=== PATIENT | female | born 1970 | race Caucasian/White ===

== ENCOUNTER 2024-12-01 01:24 | Emergency (ER) | payer OTHER, SELFPAY ==
[2024-12-01] VITALS (8 sets, daily range): BP systolic 112–124; BP diastolic 50–80; PULSE 89–98; TEMP 36.6–37.1; O2SAT 93–98; BMI 27.4
--- NOTE | 2024-12-01 01:40 | ECG_ITS ---
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
--- NOTE | 2024-12-01 01:40 | ED_ITS ---
HPI HPI - General Adult General Chief complaint: Psychiatric Symptoms Stated complaint: HEARING VOICES Time Seen by Provider: 12/01/24 01:27 Source: patient Mode of arrival: walk-in Limitations: no limitations History of Present Illness HPI narrative: The patient have a history of schizophrenia herself as well as in her family, she does not actively take any medication as she ran out of her medication that she does not know the name of it. Patient mentioned that last night she started having some auditory hallucination telling her to hurt herself. The patient tried self-medicating with cocaine. Related Data Home Medications ?Medication ?Instructions ?Recorded ?Confirmed metformin 500 mg tablet,extended 500 mg PO DAILY 12/01/24 12/01/24 release 24 hr phentermine 37.5 mg tablet 37.5 mg PO DAILY 12/01/24 12/01/24 rosuvastatin 10 mg tablet 10 mg PO DAILY 12/01/24 12/01/24 Allergies Allergy/AdvReac Type Severity Reaction Status Date / Time No Known Drug Allergies Allergy Verified 12/01/24 01:30 Opioid HPI Opioid Management Most Recent Opioid Data: No Data to Display Exam Narrative Exam Narrative: Nurses notes and vital signs reviewed and patient is not hypoxic. General: Well-appearing and in no apparent distress. Skin: Warm, dry, no pallor noted. No rash. Head: Normocephalic, atraumatic. Cardiovascular: Regular Rate and Rhythm without murmur, gallop or rub. Respiratory: No accessory muscle use or respiratory distress. Back: No midline thoracic or lumbar vertebral tenderness. No CVA tenderness Musculoskeletal: normal ROM, no calf or popliteal tenderness, no lower extremity edema/swelling GI: Abdomen is soft, non-distended. Normal bowel sounds. No masses appreciated. No tenderness to palpation. No rebound, guarding, or rigidity noted. Neurological: A&O x4. No cranial nerve dysfunction observed. Constitutional Vital Signs, click to edit/add: Last Vital Signs Temp 98 F 12/01/24 01:30 Pulse 98 H 12/01/24 01:30 Resp 16 12/01/24 01:30 BP 124/80 12/01/24 01:30 Pulse Ox 95 12/01/24 01:30 O2 Del Method Room Air 12/01/24 01:30 Course Vital Signs Vital signs: Vital Signs Temperature 98 F 12/01/24 01:30 Pulse Rate 98 H 12/01/24 01:30 Respiratory Rate 16 12/01/24 01:30 Blood Pressure 124/80 12/01/24 01:30 Pulse Oximetry 95 12/01/24 01:30 Oxygen Delivery Method Room Air 12/01/24 01:30 Temperature 98 F 12/01/24 01:30 Pulse Rate 98 H 12/01/24 01:30 Respiratory Rate 16 12/01/24 01:30 Blood Pressure 124/80 12/01/24 01:30 Pulse Oximetry 95 12/01/24 01:30 Oxygen Delivery Method Room Air 12/01/24 01:30 Medical Decision Making MDM Narrative Medical decision making narrative: The patient EKG showing sinus rhythm with a heart rate of [address] elevation or depression The patient CBC and chemistry showed no acute pathology except for mild hypokalemia of 3.3 Ethanol level is negative and the patient talk screen and urinalysis are pending Lab Data Labs: Lab Results 12/01/24 Range/Units 02:00 WBC 11.2 H (4.0-11.0) 10^3/uL RBC 4.23 (4.20-5.40) 10^6/uL Hgb 12.3 (12.0-16.0) g/dL Hct 36.7 (36.0-48.0) % MCV 86.8 (81.0-99.0) fL MCH 29.1 (26.7-34.0) pg MCHC 33.5 (29.9-35.2) g/dL RDW 12.4 (11.0-15.0) % Plt Count 386 (150-450) 10^3/uL MPV 9.9 (9.5-13.5) fL Neut % (Auto) 67.8 (43.0-75.0) % Lymph % (Auto) 18.6 L (20.5-60.0) % [place] % (Auto) 8.2 (1.7-12.0) % Eos % (Auto) 4.3 (0.9-7.0) % Baso % (Auto) 1.0 (0.2-2.0) % Neut # (Auto) 7.6 H (1.4-6.5) 10^3/uL Lymph # (Auto) 2.1 (1.2-3.8) 10^3/uL [place] # (Auto) 0.9 H (0.3-0.8) 10^3/uL Eos # (Auto) 0.5 (0.0-0.7) 10^3/uL Baso # (Auto) 0.1 (0.0-0.1) 10^3/uL Abs Immat Gran (auto) 0.01 (0.00-0.03) 10^3/uL Imm/Tot Granulo (auto) 0.1 (0.0-0.5) % Sodium 137 (136-145) mmol/L Potassium 3.3 L (3.5-5.1) mmol/L Chloride 101 (98-107) mmol/L Carbon Dioxide 26.8 (21.0-32.0) mmol/L Anion Gap 12.5 BUN 15.0 (7.0-18.0) mg/dL Creatinine 0.93 (0.55-1.02) mg/dL Est GFR ( Amer) >60 (>=60 mL/min/1.73m^2) Est GFR (Non-Af Amer) >60 (>=60 mL/min/1.73m^2) BUN/Creatinine Ratio 16.1 Glucose 127 H (74-106) mg/dL Calcium 9.1 (8.5-10.1) mg/dL Total Bilirubin 0.6 (0.2-1.0) mg/dL AST 16 (15-37) U/L ALT 17 (14-59) U/L Alkaline Phosphatase 76 (46-116) U/L Total Protein 7.2 (6.4-8.2) g/dL Albumin 3.6 (3.4-5.0) g/dL Globulin 3.6 g/dL Albumin/Globulin Ratio 1.0 Salicylates <2.8 (<=19.9) mg/dL Acetaminophen <2.0 L (10.0-30.0) ug/mL Ethanol Quant <3 mg/dL Discharge Plan Discharge Patient Disposition: Still a Patient
[2024-12-01 02:11] LABS: Basophils Absolute Auto 0.1 10^3/uL (0.0-0.1); Eosinophils Absolute Auto 0.5 10^3/uL (0.0-0.7); Eosinophils Percent Auto 4.3 % (0.9-7.0); Hematocrit 36.7 % (36.0-48.0); Hemoglobin 12.3 g/dL (12.0-16.0); Immature Granulocytes Abs Auto 0.01 10^3/uL (0.00-0.03); Immature Granulocytes Pct Auto 0.1 % (0.0-0.5); Lymphocytes Absolute Auto 2.1 10^3/uL (1.2-3.8); Lymphocytes Percent Auto 18.6 % (20.5-60.0); Mean Corpuscular HGB Conc 33.5 g/dL (29.9-35.2); Mean Corpuscular Hemoglobin 29.1 pg (26.7-34.0); Mean Corpuscular Volume 86.8 fL (81.0-99.0); Mean Platelet Volume 9.9 fL (9.5-13.5); Monocytes Absolute Auto 0.9 10^3/uL (0.3-0.8); Monocytes Percent Auto 8.2 % (1.7-12.0); Neutrophils Absolute Auto 7.6 10^3/uL (1.4-6.5); Neutrophils Percent Auto 67.8 % (43.0-75.0); Platelet Count 386 10^3/uL (150-450); Red Blood Count 4.23 10^6/uL (4.20-5.40); Red Cell Distribution Width 12.4 % (11.0-15.0); White Blood Count 11.2 10^3/uL (4.0-11.0)
[2024-12-01 02:22] LABS: Alanine Aminotransferase 17 U/L (14-59); Albumin Level 3.6 g/dL (3.4-5.0); Alkaline Phosphatase 76 U/L (46-116); Anion Gap 12.5; Aspartate Amino Transferase 16 U/L (15-37); BUN Creatinine Ratio 16.1; Bilirubin Total 0.6 mg/dL (0.2-1.0); Calcium 9.1 mg/dL (8.5-10.1); Carbon Dioxide 26.8 mmol/L (21.0-32.0); Chloride 101 mmol/L (98-107); Estimated GFR (African America >60 (>=60 mL/min/1.73m^2); Estimated GFR (Non-African Ame >60 (>=60 mL/min/1.73m^2); Globulin 3.6 g/dL; Glucose 127 mg/dL (74-106); Potassium 3.3 mmol/L (3.5-5.1); Salicylate <2.8 mg/dL (<=19.9); Sodium 137 mmol/L (136-145); Total Protein 7.2 g/dL (6.4-8.2)
[2024-12-01 02:25] LABS: Ethanol <3 mg/dL
[2024-12-01 02:26] LABS: Acetaminophen <2.0 ug/mL (10.0-30.0)
[2024-12-01 08:06] LABS: Bilirubin Urine SMALL (NEGATIVE); Blood Urine NEGATIVE (NEGATIVE); Clarity Urine CLEAR (CLEAR); Color Urine YELLOW (YELLOW); Glucose Urine UA NEGATIVE (NEGATIVE); Ketones Urine 40 mg/dL (NEGATIVE); Leukocyte Esterase Urine TRACE (NEGATIVE); Nitrite Urine NEGATIVE (NEGATIVE); Protein Urine 30 mg/dL (NEG/TRACE); Specific Gravity Urine >=1.030 (1.005-1.025)
[2024-12-01 08:08] LABS: Urine Microscopic Indicated YES
[2024-12-01 08:15] LABS: Amphetamine Screen Urine POSITIVE (NEGATIVE); Barbiturates Screen Urine NEGATIVE (NEGATIVE); Benzodiazepines Screen Urine NEGATIVE (NEGATIVE); Buprenorphine Screen Urine NEGATIVE (NEGATIVE); Cannabinoid Screen Urine NEGATIVE (NEGATIVE); Cocaine Screen Urine POSITIVE (NEGATIVE); Methadone Screen Urine NEGATIVE (NEGATIVE); Methamphetamines Screen Urine NEGATIVE (NEGATIVE); Opiate Screen Urine NEGATIVE (NEGATIVE); Oxycodone Screen Urine NEGATIVE (NEGATIVE); Phencyclidine Screen Urine NEGATIVE (NEGATIVE); Tricyclic Antidepressant Urine NEGATIVE (NEGATIVE)
[2024-12-01 08:23] LABS: Bacteria Urine TRACE #/HPF (NONE SEEN); Cast Seen? SEEN #/LPF (NONE SEEN); Crystals Seen? None Seen #/HPF (None Seen); Hyaline Casts Urine RARE; Mucus Urine SMALL (NONE SEEN)
[2024-12-01 08:24] LABS: Squamous Epithelial Cell Urine MODERATE #/LPF (NONE/RARE); Urine Culture Indicated NO
== END 2024-12-01 13:59 ==
PROVIDERS: Emergency Provider Emergency Medicine
DX: F25.9 Schizoaffective disorder, unspecified (principal)
CPT/HCPCS: 36415; 80053; 80179; 80307; 80320; 80329; 81001; 85025; 93005; 99285

== ENCOUNTER 2025-02-17 00:18 | Emergency (ER) | payer OTHER, SELFPAY ==
--- OUTSIDE RECORDS SUMMARY | 2025-02-17 00:24 | XMS_ITS | CCD ---
Author Organization [facility] Care Team Providers Care Boat Hoist Operator Name Role Phone ANNA DOAN Admitting Unavailable OLIMPIA, ANNA Attending Unavailable OLIMPIA, ANNA Consulting Unavailable OLIMPIA, ANNA Admitting Unavailable OLIMPIA, ANNA Attending Unavailable OLIMPIA, ANNA Admitting Unavailable OLIMPIA, ANNA Attending Unavailable OLIMPIA, ANNA Consulting Unavailable Emma Cobb Unavailable Anna Doan Unavailable Cory Sage Unavailable Roxana Herrera Unavailable FRANCISCO Doan Primary Care Provider U FRANCISCO Hollis Attending Provider UnaMD Cory Guadalupe Attending Provider [phone] Anna Fitch Primary Care Provider U Boogie Venegas MD Attending Provider NO FAMILY, PHYSICIAN Primary Care Provider Boogie Ferreira MD Admit Provider Boogie Camilo Admitting Unavailab le ANTOINE FAMILY, PHYSICIAN Primary Care Unavailable Daniel Enciso Attending Unavailable Boogie Camilo Admitting Unavailab Boogie Mcguire Attending Unavailab le Anna Doan Primary Care Unavailable Medications Current Medications Medication Drug Class(es) Dates Sig (Normalized) Sig (Original) amoxicillin 875 mg oral tablet (2 sources) Penicillin-class Antibacterial Start: 10-27-2021 take 1 tablet by mouth every twelve hours Amoxicillin 875 MG 1 tablet Orally every 12 hrs for 7 days Oct, Active ARIPiprazole 2 mg oral tablet (1 source) Atypical Antipsychotic Start: 12-04-2024 take 1 tablet by mouth once daily at bedtime Aripiprazole 2 mg Tablet Active 2 MG PO Daily at bedtime December 04, 2024 12:00am cyclobenzaprine hydrochloride 10 mg oral tablet (1 source) Muscle Relaxant Start: 12-21-2021 take 1 tablet by mouth every eight hours Cyclobenzaprine HCl 10 MG 1 tablet as needed Orally Three times a day for 10 days Dec, Active dextromethorphan hydrobromide 1.5 mg/ml / pyrilamine maleate 1.5 mg/ml oral solution (2 sources) Uncompetitive O-cnbxuu-Z-aspartat e Receptor Antagonist, Sigma-1 Agonist Start: 10-27-2021 Hartman DM 7.5-7.5 MG/5ML 10 ml Orally every 6-8 hours as needed for 8 days Oct, Active DULoxetine 60 mg delayed release oral capsule (5 sources) Serotonin and Norepinephrine Reuptake Inhibitor Start: 09-21-2021 take 1 capsule by mouth every twenty-four hours DULoxetine HCl 60 MG 1 capsule Orally Once a day for 30 day(s) Sep, Active Start: 09-21-2021 take 1 capsule by [facility] every twenty-four hours DULoxetine HCl 30 MG 1 capsule Orally Once a day for 30 day(s) Sep, Active escitalopram 5 mg oral tablet (1 source) Serotonin Reuptake Inhibitor Start: 12-04-2024 take 1 tablet by mouth once daily Escitalopram Oxalate 5 mg Tablet Active 5 MG PO Daily December 04, 2024 12:00am L-Tyrosine (6 sources) L-Tyrosine Activ e Medical Marijuana / Cannabinoid Product as documented (13 sources) Medical Marijuan a / Cannabinoid Product as documented as documented as documented as documented PRN Active Medical Marijuan a / Cannabinoid Product as documented as documented as documented as documented Active 24 hr metFORMIN hydrochloride 500 mg extended release oral tablet (19 sources) Biguanide Start: 01-05-2024 End: 09-04-2024 take 1 tablet by mouth once daily Metformin 500 mg tablet extended release 24 hr Active 500 MG PO Daily September 04, 2024 10:35am Start: 11-26-2022 take 2 tablets by [facility] every twenty-four hours metFORMIN HCl ER 500 MG 2 tablets Orally Once a day for 30 days Nov, Active Start: 11-26-2022 take 1 tablet by sherly every other week at dinner, then take 2 tablets by mouth once daily metFORMIN HCl ER 500 MG 1 tablet with breakfast or evening meal and in 2 weeks if no side effects take 2 tablets Orally Once a day for 30 day(s) Nov, Active methylPREDNISolone 4 mg oral tablet (2 sources) Corticosteroid Start: 08-30-2022 methylPREDNISo lone 4 MG as directed Orally Once a day for 6 days Aug, Active Start: 12-21-2021 methylPREDNISo lone 4 MG as directed Orally Once a day for 6 days Dec, Active 24 hr nicotine 0.875 mg/hr transdermal system (1 source) Cholinergic Nicotinic Agonist Start: 12-04-2024 apply 1 dose transdermal route every twenty-four hours Nicotine 21 mg/24 hr Patch 24 Hour Active 21 MG TRANSDERML Daily December 04, 2024 12:00am omeprazole 20 mg delayed release oral tablet (17 sources) Proton Pump Inhibitor Start: 12-01-2024 take 1 tablet by mouth once daily Omeprazole 20 mg tablet,delayed release (DR/EC) Active 20 MG PO Daily December 01, 2024 12:00am Start: 01-05-2024 End: 01-05-2024 take 1 capsule by mouth once daily Omeprazole 20 mg capsule,delayed release(DR/EC) Discontinued 20 MG PO Daily January 04, 2024 11:00pm January 05, 2024 8:41am take 1 capsule by [facility] once daily as needed Omeprazole 20 MG 1 capsule 30 minutes before morning meal otc Orally Once a day prn Active Omeprazole Activ e ondansetron 4 mg oral tablet (2 sources) Serotonin-3 Receptor Antagonist Start: 10-27-2021 take 1 tablet by mouth every eight hours as needed Zofran ODT 4 MG 1 tablet on the tongue and allow to dissolve Orally every 8 hrs as needed for 4 days Oct, Active oseltamivir 75 mg oral capsule (2 sources) Neuraminidase Inhibitor Start: 10-27-2021 take 1 capsule by mouth every twelve hours Tamiflu 75 MG 1 capsule Orally Twice a day for 5 day(s) Oct, Active 24 hr paliperidone 3 mg extended release oral tablet (1 source) Atypical Antipsychotic take 1 tablet by mouth every twenty-four hours Invega 3 MG 1 tablet in the morning Orally Once a day Active phentermine hydrochloride 37.5 mg oral tablet (15 sources) Sympathomimetic Amine Anorectic Start: 01-05-2024 End: 09-04-2024 take 1 tablet by mouth once daily Phentermine 37.5 mg tablet Active 37.5 MG PO Daily September 04, 2024 10:35am Start: 10-24-2023 take 1 tablet by sherly th every twenty-four hours Phentermine HCl 37.5 MG 1 tablet Orally Once a day for 30 days . BMI 33. She can stay on the medication long-term as she has a greater than 10% weight loss. Oct, Active Start: 09-12-2023 take 1 tablet by sherly th every twenty-four hours Phentermine HCl 37.5 MG 1 tablet Orally Once a day for 30 days . BMI 33. She can stay on the medication long-term as she has a greater than 10% weight loss. Sep, Active Start: 08-04-2023 take 1 tablet by shelry th every twenty-four hours Phentermine HCl 37.5 MG 1 tablet Orally Once a day for 30 days . BMI 34. She can stay on the medication long-term as she has a greater than 10% weight loss. Aug, Active Start: 06-14-2023 take 1 tablet by sherly th every twenty-four hours Phentermine HCl 37.5 MG 1 tablet Orally Once a day for 30 days . BMI 36. Refill 05/24/2023. Jun, Active Start: 05-03-2023 take 1 tablet by mouth once da so Phentermine HCl 37.5 MG 1 tablet Orally Once a day for 30 days . BMI 36. Refill 05/24/2023. May, Active Start: 03-18-2023 take 1 tablet by mouth once da so Phentermine HCl 37.5 MG 1 tablet Orally Once a day for 30 days Mar, Active prazosin 2 mg oral capsule (6 sources) alpha-Adrenergic Oleg take 1 capsule by mouth every twenty-four hours Minipress 2 MG 1 capsule at bedtime Orally Once a day Active QUEtiapine 25 mg oral tablet (2 sources) Atypical Antipsychotic take 1 tablet by mouth every twenty-four hours SEROquel 25 MG 1 tablet at bedtime Orally Once a day for 30 day(s) Active Qunol Ultra CoQ10 100-150 MG-UNIT (8 sources) take 1 capsule by mouth once daily Qunol Ultra CoQ10 100-150 MG-UNIT 1 capsule Orally daily OTC Active rosuvastatin calcium 10 mg oral tablet (19 sources) HMG-CoA Reductase Inhibitor Start: End: take 1 tablet by mouth once daily Rosuvastatin 10 mg tablet Active 10 MG PO Daily September 04, 2024 10:35am take 1 tablet by mouth once stephanie y Rosuvastatin Calcium 10 mg TAKE 1 TABLET BY MOUTH DAILY for 30 Active 0.25 mg, 0.5 mg dose 1.5 ml semaglutide 1.34 mg/ml pen injector (3 sources) Start: 11-26-2022 Ozempic (0.25 or 0.5 MG/DOSE) 2 MG/1.5ML 0.25 mg for one month and then increase to 0.5 mg dose Subcutaneous weekly for 30 days Nov, Active ubiquinol 100 mg oral capsule (5 sources) take 1 capsule by mouth once daily Qunol Ultra CoQ10 100-150 MG-UNIT 1 capsule Orally daily OTC Active Completed/Discontinued Medications Medication Drug Class(es) Dates Sig (Normalized) Sig (Original) acetaminophen 325 mg oral capsule (2 sources) Start: 01-05-2024 End: 12-01-2024 take 1 capsule by mouth every six hours as needed Acetaminophen (Tylenol) 325 mg capsule Discontinued 325 MG PO Every 6 hours as needed January 04, 2024 11:00pm December 01, 2024 3:49pm ascorbic acid 1000 mg oral tablet (1 source) Vitamin C Start: 08-20-2024 End: 12-01-2024 take 1 g by mouth every six hours Ascorbic Acid (Vitamin C) 1,000 mg capsule Discontinued 1 GM PO Every 6 hours August 20, 2024 12:00am December 01, 2024 3:50pm Problems Active Problems Problem Classification Problem Date Documented Date Episodic/Chronic Anxiety disorders (20 sources) Generalized anxiety disorder; Translations: [Generalized anxiety disorder] Onset: 09-21-2021 Resolved: 12-21-2021 Chronic Disorders of lipid metabolism (20 sources) Hypercholesterolemia; Translations: [Pure hypercholesterolemia, unspecified] Chronic Esophageal disorders (20 sources) Gastroesophageal reflux disease; Translations: [Gastro-esophageal reflux disease without esophagitis] Chronic Other aftercare (7 sources) Other lead game designer (current) drug therapy Episodic Other connective tissue disease (1 source) Plantar fascial fibromatosis Episodic Other nutritional; endocrine; and metabolic disorders (20 sources) Body mass index 30+ - obesity; Translations: [Body mass index (BMI) 35.0-35.9, adult] Chronic Other nutritional; endocrine; and metabolic disorders (20 sources) Obesity; Translations: [Other obesity due to excess calories] Chronic Other nutritional; endocrine; and metabolic disorders (1 source) Other obesity due to excess calories Chronic Other nutritional; endocrine; and metabolic disorders (2 sources) Body mass index (BMI) 35.0-35.9, adult Chronic Other nutritional; endocrine; and metabolic disorders (13 sources) Obesity, unspecified; Translations: [Obesity, unspecified] Chronic Other nutritional; endocrine; and metabolic disorders (1 source) Body mass index (BMI) 33.0-33.9, adult Chronic Other nutritional; endocrine; and metabolic disorders (2 sources) Obese class I; Translations: [Obesity, unspecified] 01-05-2024 Chronic Other nutritional; endocrine; and metabolic disorders (1 source) Abnormal weight gain Episodic Other nutritional; endocrine; and metabolic disorders (1 source) Body mass index 25-29 - overweight; Translations: [Overweight] 06-21-2024 Episodic Other skin disorders (15 sources) Acanthosis nigricans; Translations: [Acanthosis nigricans] 01-05-2024 Episodic Other skin disorders (10 sources) Acanthosis nigricans; Translations: [Acquired acanthosis nigricans] Episodic Other upper respiratory infections (3 sources) Acute upper respiratory infection, unspecified; Translations: [Streptococcal sore throat] Onset: 06-26-2021 Resolved: 06-26-2021 Episodic Residual codes; unclassified (19 sources) Amnesia; Translations: [Other amnesia] Episodic Schizophrenia and other psychotic disorders (3 sources) Schizophrenia; Translations: [Schizophrenia, unspecified] Onset: 12-01-2024 12-02-2024 Chronic Spondylosis; intervertebral disc disorders; other back problems (16 sources) Acute back pain with sciatica; Translations: [Lumbago with sciatica, right side] Onset: 12-21-2021 Resolved: 12-21-2021 Episodic Suicide and intentional self-inflicted injury (3 sources) Suicidal thoughts; Translations: [Suicidal ideations] Onset: 12-01-2024 12-02-2024 Episodic Unclassified (3 sources) CONTACT W/AND (SUSP) EXPOS COVID-19; Translations: [CONTACT W/AND (SUSP) EXPOS COVID-19] Onset: 07-09-2021 Past or Other Problems Problem Classification Problem Date Documented Date Episodic/Chronic Immunizations and screening for infectious disease (7 sources) Contact with and (suspected) exposure to other viral communicable diseases; Translations: [Encounter for screening for other viral diseases] Onset: 06-10-2021 Resolved: 10-27-2021 Episodic Influenza (1 source) Influenza due to other identified influenza virus with other respiratory manifestations Onset: 10-27-2021 Resolved: 10-27-2021 Episodic Malaise and fatigue (1 source) Other fatigue; Translations: [Fatigue, unspecified type R53.83] Onset: 07-14-2021 Resolved: 07-14-2021 Episodic Otitis media and related conditions (1 source) Otitis media, unspecified, right ear Onset: 10-27-2021 Resolved: 10-27-2021 Episodic Residual codes; unclassified (1 source) Other amnesia Onset: 09-21-2021 Resolved: 09-21-2021 Episodic Unclassified (1 source) CONTACT W/AND (SUSP) EXPOS COVID-19; Translations: [CONTACT W/AND (SUSP) EXPOS COVID-19] Onset: 06-29-2021 Viral infection (1 source) COVID-19 Onset: 10-27-2021 Resolved: 10-27-2021 Results Test Name Value Interpretation Reference Range Facility Cholesterol [Mass/volume] in Serum or PlasmaOrdered By: Boogie Camilo on 12-02-2024 Cholesterol [Mass/Vol] Cholesterol [Mass/volume] in Serum or Plasma Low 140-200 [facility] Comment on above: Chol less than 200 m g/dl low riskChol 201-239 mg/dl borderline riskChol 240 mg/dl and greater high risk Cholesterol in HDL [Mass/vol ume] in Serum or PlasmaOrdered By: Boogie Camilo on 12-02-2024 Cholesterol in HDL [Mass/Vol] Serum or plasma high density lipoprotein (HDL) cholesterol measurement [facility] Comment on above: HDL CHOL ATP-III CLA SSIFICATION Cardiovascular RiskHDL > or equal to 60 mg/dL LOWHDL < 40 mg/dL HIGH Cholesterol in LDL Calc [Mas s/Vol]Ordered By: Boogie Camilo on 12-02-2024 Cholesterol in LDL [Mass/Vol] Cholesterol in LDL [Mass/volume] in Serum or Plasma by calculation 0-100 [facility] Comment on above: LDL ATP III CLASSIFI CATIONLDL less than 100 mg/dL OptimalLDL 100-129 mg/dL Near or above optimalLDL 130-159 mg/dL Borderline highLDL 160-189 mg/dL HighLDL greater than 189 mg/dL Very high Cholesterol in VLDL Calc [Ma ss/Vol]Ordered By: Boogie Camilo on 12-02-2024 Cholesterol in VLDL [Mass/Vol] Cholesterol in VLDL [Mass/volume] in Serum or Plasma by calculation [facility] Lipid Panelon 12-02-2024 Cholesterol [Mass/Vol] 136 mg/dL Low 140-200 [facility] Comment on above: Result Comment: Chol less than 200 mg/dl low risk Chol 201-239 mg/dl borderline risk Chol 240 mg/dl and greater high risk Performed By: #### V [id number], LIPID, TSH3 wRFLX #### [facility] [address] [place] [address] [place] Cholesterol in HDL [Mass/Vol] 48 mg/dL Normal [facility] Comment on above: Result Comment: HDL CHOL ATP-III CLASSIFICATION Cardiovascular Risk HDL > or equal to 60 mg/dL LOW HDL < 40 mg/dL HIGH Performed By: #### V [id number], LIPID, TSH3 wRFLX #### [facility] [address] Cholesterol.total/Anupama sterol in HDL [Mass ratio] 2.8 {ratio} Normal <5.0 [facility] Comment on above: Performed By: #### V [id number], LIPID, TSH3 wRFLX #### [facility] [address] LDL Cholesterol,Calculated 63 mg/dL Normal 0-100 [facility] Comment on above: Result Comment: LDL ATP III CLASSIFICATION LDL less than 100 mg/dL Optimal LDL 100-129 mg/dL Near or above optimal LDL 130-159 mg/dL Borderline high LDL 160-189 mg/dL High LDL greater than 189 mg/dL Very high Performed By: #### V [id number], LIPID, TSH3 wRFLX #### [facility] [address] Triglyceride w/Reflex 127 mg/dL Normal 0-149 [facility] Comment on above: Result Comment: TRIG ATP III CLASSIFICATION TRIG less than 150 mg/dL Normal TRIG 150-199 mg/dL Borderline high TRIG 200-500 mg/dL High TRIG greater than 500 mg/dL Very high Standard traceable to the Center for Disease Conrtrol and Prevention (CDC) test method. Performed By: #### V [id number], LIPID, TSH3 wRFLX #### [facility] [address] VLDL CHOLESTEROL 25 mg/dL Normal [facility] Comment on above: Performed By: #### V [id number], LIPID, TSH3 wRFLX #### [facility] [address] Serum or plasma total choles terol/high density lipoprotein (HDL) cholesterol mass ratOrdered By: Boogie Camilo on 12-02-2024 Cholesterol.total/Anupama sterol in HDL [Mass ratio] Serum or plasma total cholesterol/high density lipoprotein (HDL) cholesterol mass rat <5.0 [facility] Thyroid Stim Hormone w/Rflxo n 12-02-2024 Thyroid Stim Hormone w/Rflx 1.41 u[iU]/mL Normal 0.45-5.33 [facility] Comment on above: Performed By: #### V [id number], LIPID, TSH3 wRFLX #### [facility] [address] Thyrotropin [Units/volume] i n Serum or PlasmaOrdered By: Boogie Camilo on 12-02-2024 TSH Qn Thyrotropin [Units/volume] in Serum or Plasma 0.45-5.33 [facility] Triglyceride [Mass/volume] i n Serum or PlasmaOrdered By: Boogie Camilo on 12-02-2024 Triglyceride [Mass/Vol] Triglyceride [Mass/volume] in Serum or Plasma 0-149 [facility] Comment on above: TRIG ATP III CLASSIF ICATIONTRIG less than 150 mg/dL NormalTRIG 150-199 mg/dL Borderline highTRIG 200-500 mg/dL High TRIG greater than 500 mg/dL Very highStandard traceable to the Center for Disease Conrtrol and Prevention (CDC) test method. Vitamin D 25 Hydroxy Totalon 12-02-2024 Vitamin D 25 Hydroxy Total 32.4 ng/mL Normal 30-100 [facility] Comment on above: Result Comment: ASPEN MIN D STATUS 25(OH)VITAMIN D RANGE (ng/mL) Deficient <20 Insufficient 20 to <30 Sufficient 30 to 100 Reference: Charlene Shi, Bryce BROWNLEE, et al. Evaluation,treatment, and prevention of vitamin D deficiency; an Endocrine Society clinical practice guideline. JCEM. 2010; 96(7):1911-30. PERFORMED BY: [place] [address] PATHOLOGIST [employer]NER NILES LATIF M.D. Performed By: #### V [id number], LIPID, TSH3 wRFLX #### [address] Vitamin D+Metabolites [Mass/ volume] in Serum or PlasmaOrdered By: Boogie Camilo on 12-02-2024 Vitamin D+Metabolites [Mass/Vol] Vitamin D+Metabolites [Mass/volume] in Serum or Plasma 30-100 [facility] Comment on above: VITAMIN D STATUS 25( [place])VITAMIN D RANGE (ng/mL) Deficient <20 Insufficient 20 to <30Sufficient 30 to 100Reference: Charlene Shi, Bryce BROWNLEE, et al. Evaluation,treatment, and prevention of vitamin D deficiency; an Endocrine Society clinical practice guideline. JCEM. 2010; 96(7):1911-30. Alanine aminotransferase [En zymatic activity/volume] in Serum or PlasmaOrdered By: Cory Sage on 10-17-2023 ALT [Catalytic activity/Vol] 15 U/L 7-52 [facility] Albumin [Mass/volume] in Ser um or Plasma by Bromocresol green (BCG) dye binding methoOrdered By: Cory Sage on 10-17-2023 Albumin BCG dye [Mass/Vol] 4.3 g/dL 3.5-5.7 [facility] Alkaline phosphatase [Enzyma tic activity/volume] in Serum or PlasmaOrdered By: Cory Sage on 10-17-2023 ALP [Catalytic activity/Vol] 67 U/L 34-104 [facility] Aspartate aminotransferase [ Enzymatic activity/volume] in Serum or PlasmaOrdered By: Cory Sage on 10-17-2023 AST [Catalytic activity/Vol] 15 U/L 13-39 [facility] Bilirubin.total [Mass/volume ] in Serum or PlasmaOrdered By: Cory Sage on 10-17-2023 Bilirubin [Mass/Vol] 0.5 mg/dL 0.3-1.0 [facility] Calcium [Mass/volume] in Ser um or PlasmaOrdered By: Cory Sage on 10-17-2023 Calcium [Mass/Vol] 9.2 mg/dL 8.6-10.3 [facility] Carbon dioxide, total [Moles /volume] in Serum or PlasmaOrdered By: Cory Sage on 10-17-2023 CO2 [Moles/Vol] 31.3 mmol/L 21.0-31.0 [facility] Chloride [Moles/volume] in S taylor or PlasmaOrdered By: Cory Sage on 10-17-2023 Chloride [Moles/Vol] 108 mmol/L 98-107 [facility] Cholesterol [Mass/volume] in Serum or PlasmaOrdered By: Cory Sage on 10-17-2023 Cholesterol [Mass/Vol] 157 mg/dL 140-200 [facility] Comment on above: Chol less than 200 m g/dl low riskChol 201-239 mg/dl borderline riskChol 240 mg/dl and greater high risk Cholesterol in LDL Calc [Mas s/Vol]Ordered By: Cory Sage on 10-17-2023 Cholesterol in LDL [Mass/Vol] 93 mg/dL 0-100 [facility] Comment on above: LDL ATP III CLASSIFI CATIONLDL less than 100 mg/dL OptimalLDL 100-129 mg/dL Near or above optimalLDL 130-159 mg/dL Borderline highLDL 160-189 mg/dL HighLDL greater than 189 mg/dL Very high Cholesterol in VLDL Calc [Ma ss/Vol]Ordered By: Cory Sage on 10-17-2023 Cholesterol in VLDL [Mass/Vol] 20 mg/dL [facility] Creatinine [Mass/volume] in Serum or PlasmaOrdered By: Cory Sage on 10-17-2023 Creatinine [Mass/Vol] 0.81 mg/dL 0.60-1.20 [facility] Globulin Calc (S) [Mass/Vol] Ordered By: Cory Sage on 10-17-2023 Globulin (S) [Mass/Vol] 2.2 g/dL [facility] Glucose [Mass/volume] in Ser um or PlasmaOrdered By: Cory Sage on 10-17-2023 Glucose [Mass/Vol] 94 mg/dL 70-100 [facility] Comment on above: ADA recommended refe rence rangeRandom Glucose Reference Range is dependent on time and content of last meal. Glucose of more than 200 mg/dL in a nonstressed, ambulatory subject supports the diagnosis of Diabetes Mellitus. No Panel InformationOrdered By: Cory Sage on 10-17-2023 Estimated GFR (CKD-EPI) > 60.0 mL/Min [facility] Creatinine Clearance (Chem N/A [facility] Potassium [Moles/volume] in Serum or PlasmaOrdered By: Cory Sage on 10-17-2023 Potassium [Moles/Vol] 4.8 mmol/L 3.5-5.1 [facility] Protein [Mass/volume] in Ser um or PlasmaOrdered By: Cory Sage on 10-17-2023 Protein [Mass/Vol] 6.5 g/dL 6.4-8.9 [facility] Serum or plasma albumin/glob ulin mass ratioOrdered By: Cory Sage on 10-17-2023 Albumin/Globulin [Mass ratio] 2.0 {ratio} [facility] Serum or plasma anion gap de terminationOrdered By: Cory Sage on 10-17-2023 Anion gap [Moles/Vol] 8.5 mmol/L 6.0-15.0 [facility] Serum or plasma high density lipoprotein (HDL) cholesterol measurementOrdered By: Cory Sage on 10-17-2023 Cholesterol in HDL [Mass/Vol] 44 mg/dL 23-92 [facility] Comment on above: HDL CHOL ATP-III CLA SSIFICATION Cardiovascular RiskHDL > or equal to 60 mg/dL LOWHDL < 40 mg/dL HIGH Serum or plasma total choles terol/high density lipoprotein (HDL) cholesterol mass ratOrdered By: Cory Sage on 10-17-2023 Cholesterol.total/Anupama sterol in HDL [Mass ratio] 3.6 {ratio} <5.0 [facility] Sodium [Moles/volume] in Ser um or PlasmaOrdered By: Cory Sage on 10-17-2023 Sodium [Moles/Vol] 143 mmol/L 136-145 [facility] Triglyceride [Mass/volume] i n Serum or PlasmaOrdered By: Cory Sage on 10-17-2023 Triglyceride [Mass/Vol] 100 mg/dL 0-149 [facility] Comment on above: TRIG ATP III CLASSIF ICATIONTRIG less than 150 mg/dL NormalTRIG 150-199 mg/dL Borderline highTRIG 200-500 mg/dL High TRIG greater than 500 mg/dL Very highStandard traceable to the Center for Disease Conrtrol and Prevention (CDC) test method. Urea nitrogen [Mass/volume] in Serum or PlasmaOrdered By: Cory Sage on 10-17-2023 Urea nitrogen [Mass/Vol] 19 mg/dL 7- [facility] Vitamin B12 ser/plasOrdered By: Cory Sage on 10-17-2023 Cobalamin (Vitamin B12) [Mass/Vol] 455 pg/mL 180-914 [facility] Comprehensive Metabolic Pane dora 10-29-2022 Albumin [Mass/Vol] 4.187000 g/dL Normal 3.2-5.5 g/dL N [facility] [employer] Other Albumin/Globulin [Mass ratio] 1.5 {ratio} [facility] [employer] Other ALP [Catalytic activity/Vol] 69 U/L Normal 32-92 U/L [place] [employer] Other ALT [Catalytic activity/Vol] 19 U/L Normal 10-60 U/L [place] [employer] Other AST [Catalytic activity/Vol] 18 U/L Normal 10-42 U/L [place] [employer] Other Bilirubin [Mass/Vol] 0.8065905 mg/dL Normal 0.3- 1.2 mg/dL [place] [employer] Other Calcium [Mass/Vol] 9.9804343 mg/dL Normal 8.2-10 .2 mg/dL [place] [employer] Other Chloride [Moles/Vol] 105 mmol/L Normal 95-114 mmol/L [place] [employer] Other CO2 [Moles/Vol] 26.15014610 mmol/L Normal 22.0-3 0.0 mmol/L [place] [employer] Other Creatinine [Mass/Vol] 0.52654362 mg/dL Normal 0. 44-1.03 mg/dL [place] [employer] Other Glucose [Mass/Vol] 97 mg/dL Normal 70-100 mg/dL [place] [facility] Other Potassium [Moles/Vol] 4.33248475 mmol/L Normal 3 .5-5.1 mmol/L [place] [employer] Other Protein [Mass/Vol] 6.612563 g/dL Normal 6.1-7.9 g/dL [facility] [employer] Other Sodium [Moles/Vol] 139 mmol/L Normal 136-146 mmol/L [place] Other Urea nitrogen [Mass/Vol] 20 mg/dL Normal 9-23 mg/dL [employer] Other Comprehensive Metabolic Panel > 60 [employer] Other Comprehensive Metabolic Panel 2.6 g/dL [place] Other Insulinon 10-29-2022 Insulin 28.3 u[iU]/mL High 2.6-24.9 u[iU]/mL [facility] [employer] Other Lipid Panelon 10-29-2022 Cholesterol [Mass/Vol] 268 mg/dL High 140-2 00 mg/dL [place] [facility] Other Cholesterol in HDL [Mass/Vol] 52 mg/dL Normal 35-85 mg/dL [employer] Other Cholesterol in LDL Elph Qn 194 mg/dL High 0-100 mg/dL [place] [employer] Other Cholesterol.total/Anupama sterol in HDL [Mass ratio] 5.2 {ratio} <5.0 [place] [facility] Other Lipid Panel 110 mg/dL Normal 35-149 mg/dL [employer] Other Lipid Panel 22 mg/dL [employer] Other Thyroid Stimulating Hormoneo n 10-29-2022 TSH Qn 0.92851499199 m[IU]/L Normal 0.45-5 .33 u[iU]/mL [place] [employer] Other A1C HEMOGLOBINon 10-14-2022 HbA1c (Bld) [Mass fraction] 5.6 % [place] [facility] Other HbA1c (Bld) [Mass fraction]o n 10-14-2022 A1C HEMOGLOBIN [facility] [employer] Other COVID Quick Testingon 2021 Result Positive [place] Other Quick Fluon 10-27-2021 FLUAV Ab CF (S) [Titer] Negative N [facility] [employer] Other FLUBV Ab CF (S) [Titer] Positive N [facility] [employer] Other Covid-19 PCR (CVDTBH)on 06-04 SARS-CoV-2 (COVID-19) RNA JAVI+probe Ql (Unsp spec) Not detected Normal NOT DETECTED [facility] Comment on above: Result Comment: This test is not yet approved or cleared by the [place] FDA. When there are no FDA-approved or cleared tests available, and other criteria are met, FDA can make tests available under an emergency access mechanism called an Emergency Use Authorization (EUA). The EUA for this test is supported by the [place] of Health and Human Service's (HHS's) declaration that circumstances exist to justify the emergency use of in vitro diagnostics for the detection and/or diagnosis of the virus that causes COVID-19. This EUA will remain in effect (meaning this test can be used) for the duration of the COVID-19 declaration justifying emergency of IVDs, unless it is terminated or revoked by FDA (after which the test may no longer be used). When diagnostic testing is negative, the possibility of a false negative should be considered in the context of a patient's recent exposures and the presence of clinical signs and symptoms consistent with SARS-CoV-2. Performed By: #### [facility] #### [facility] [address] [place] [address] Dr. Miguel Angel Leblanc COVID Quick Testingon 2020 Result Negative [facility] [employer] Other Covid-19 PCR (CVDTBH)on SARS-CoV-2 (COVID-19) RNA JAVI+probe Ql (Unsp spec) Not detected Normal NOT DETECTED [facility] Comment on above: Result Comment: This test is not yet approved or cleared by the [place] FDA. When there are no FDA-approved or cleared tests available, and other criteria are met, FDA can make tests available under an emergency access mechanism called an Emergency Use Authorization (EUA). The EUA for this test is supported by the [place] of Health and Human Service's (HHS's) declaration that circumstances exist to justify the emergency use of in vitro diagnostics for the detection and/or diagnosis of the virus that causes COVID-19. This EUA will remain in effect (meaning this test can be used) for the duration of the COVID-19 declaration justifying emergency of IVDs, unless it is terminated or revoked by FDA (after which the test may no longer be used). When diagnostic testing is negative, the possibility of a false negative should be considered in the context of a patient's recent exposures and the presence of clinical signs and symptoms consistent with SARS-CoV-2. Performed By: #### C VDTB #### [facility] [address] [address] Laura Luu Coronavirus (COVID-19/SARS-C oV-2) [employer] 07-25-2020 Device Identifier Araujo ID [facility] Comment on above: Performed By: #### 9 4532-9x2 #### [facility] [address] [place] [address] Employed in healthcare No [facility] Comment on above: Performed By: #### 9 4531-9x2 #### [facility] [address] [place] [address] First test Yes [facility] Comment on above: Performed By: #### 9 4531-9x2 #### [facility] [address] [place] [address] ICU No [facility] Comment on above: Performed By: #### 9 4532-9x2 #### [facility] [address] [place], [place] [id number] Illness or injury onset date and time UNKNOWN [facility] Comment on above: Performed By: #### 9 4532-9x2 #### [facility] [address] [place] [address] Patient was hospitalized because of this condition No [facility] Comment on above: Performed By: #### 9 4532-9x2 #### [facility] [address] [place] [address] status NotPreg Normal [facility] Comment on above: Performed By: #### 9 453-9x2 #### [facility] [address] [place] [address] Resides in congregate care setting No Normal [facility] Comment on above: Performed By: #### 9 4532-9x2 #### [facility] [address] [place] [address] SARS-CoV-2 NOTDET [facility] Comment on above: Result Comment: This test was performed via the [employer] NOW COVID-19 assay and has been authorized by FDA under an Emergency Use Authorization (EUA). The assay is validated for nasopharyngeal (CYCLING INSTRUCTOR), nasal, and oropharyngeal (OP) direct swabs. The limit of detection of the assay is approximately 125 genome equivalence/mL; however, detection of SARS-CoV-2 may be affected by the sample collection and transport methods, patient factors (e.g., presence of symptoms, and/or stage of infection), and a negative result does not rule out the possibility of infection. For updated information, refer to the Center for Disease Control website: www.cdc.gov/coronavirus. Performed By: #### 9 4532-9x2 #### [facility] [address] [place] [address] Symptomatic as defined by CDC Yes [facility] Comment on above: Performed By: #### 9 4532-9x2 #### [address] [address] ED [facility] 07-25-[address] [facility] [address] [id number] [phone] Emergency Department Discharge Instructions LIZ VENTURA, Please provide this information to your Primary Care/Specialist Name: LIZ VENTURA Current Date : 07/25/2020 12:31:04 : 1970 Primary Care Physician: Physician, No PCP Diagnosis : Cough Follow-Up Instructions: LIZ VENTURA has been given these follow-up instructions: FOLLOW-UP APPOINTMENTS: Provider: Specialty: Address: Date: Follow up with primary care provider 1 to 2 days Comment: Call for an Appointment with a primary doctor Provider: Specialty: Address: Date: Return to Emergency Department Follow-up as needed Laboratory Orders: Name: Status: Coronavirus (COVID-19/SARS-CoV-2) RAPID Completed Radiology Orders: Name: Status: XR Chest 2 Views Completed Diagnostic Tests: None Ordered Procedure(s) and Patient Education(s) : Work Release (CO-LC) (Custom); COL COVID19 How to Protect Yourself (Custom); [facility] Clinic List All (CUSTOM); Cough, Adult EMERGENCY SERVICES MEDICATION LIST Lista de Medicaciones de los Servicios de Emergencia Name LIZ VENTUAR MRN (COL)-[id number] PLEASE READ THE FOLLOWING REGARDING YOUR MEDICATIONS Based on the information available during your visit we have given you the medication instructions below. Continue taking medications you took prior to your visit unless you have been told to change. Please share this information with your own doctor. Carry a list of your medications with you in case of an emergency. Update it when medications are stopped, doses are changed, or new medications (including iyco-uty-cpsetqm products) are added. If you have any questions, check with your doctor. Por la informaci??n disponible sabiha escamilla visita, las instrucciones de medicaci??n aparecen debajo. Favor de continuar tomando las medicaciones Ud. federico?? antes de escamilla visita por lo menos que hay cambios. Favor de compartir esta informaci??n con escamilal medico. Lleva leonardo lista de medicaciones consigo por arsenio de emergenc??a. Actualiza la lista cuando Ud. yomaira de edson las medicaciones, si cambian las dosis, o si hay nuevas medicaciones a??adidas (incluyendo medicaciones vendidas sin prescripci??n). Favor de preguntar a escamilla medico por cualquier katiana. THESE ARE THE MEDICATIONS YOU SHOULD BE TAKING benzonatate (Tessalon 200 mg oral capsule) 1 Capsule By Mouth 3 Times a day as needed as needed for cough. Refills: 0. MEDICATIONS GIVEN DURING MEDICAL VISIT None NON-MEDICATION PRESCRIPTION SCHEDULING PHONE NUMBER: MEDICATION CHANGE DETAILS (Not your Final Home Medication List) During the course of your visit, your home medication list was updated with the most current information. The details of those changes are shown below: NEW MEDICATIONS Printed Prescriptions benzonatate (Tessalon 200 mg oral capsule) 1 Capsule By Mouth 3 Times a day as needed as needed for cough. Refills: 0. Comment UPDATED MEDICATIONS None UNCHANGED MEDICATIONS None STOP TAKING THESE MEDICATIONS None DO NOT TAKE UNTIL YOU TALK TO YOUR DOCTOR None [facility] [address] [address] [phone] Emergency Department Discharge Instructions Name: LIZ VENTURA Current Date:07/25/2020 12:31:04 :1970 Primary Physician:Physician, No PCP We would like to thank you for choosing [facility] and [facility] for your emergency medical needs. We examined and treated you today on an emergency basis only. This was not a substitute for, or an effort to provide, complete medical care. In most cases, you must let your doctor (or the doctor we referred you to) check you again. Tell your doctor about any new or lasting problems. We cannot recognize and treat all injuries or illnesses in one emergency department visit. After you leave, you should follow the directions attached. Instructions for obtaining X-rays: When following up with your doctor, you may need to take copies of your x-rays that were done in the Emergency Department. If you didn't receive these upon your discharge from the emergency department, please [phone]. When the final report becomes available and it is reviewed, the emergency department will attempt to contact you if there are any changes in your instructions. It is important that you leave accurate information with us on how to contact you. IF you cannot be contacted, YOU must contact the follow-up doctor that you were assigned to make sure that the final official x-ray report does not require a change in your treatment. Instructions for obtaining medical records: If you need a copy of your medical records for follow-up, please contact the Health Information Management Department at . Their office hours are 8 AM- 4:30 PM, Tuesday through Tuesday. Please note: Results are not immediately available. Please allow a minimum of 36 hours for documentation and results. If you were prescribed an antibiotic: Antibiotics are life-saving drugs and they need to be used properly. Your team might change your antibiotic because test results show that a different antibiotic would be better to treat your infection. Like all medications, antibiotics have side effects. Some can be serious. This includes the risk of getting an antibiotic-resistant infection later, which may be difficult to treat. Remember to take your antibiotics as prescribed. If you have any questions please talk to your healthcare team. Seatbelts: There is no doubt that seatbelts save lives. Every day, people without seatbelts have more serious injuries. Have everyone buckle up, using age appropriate seatbelts or car seats, to reduce their risk of injury. Smoking: If you do smoke, we encourage you to stop. Smoking affects all aspects of your health and the health of those around you. Call the [place] [employer] at 6-376-GHJA-USA or the [place] [employer] at 6-212-VQC-2450 for more information. High blood pressure: Your screening blood pressure today was 124 mm Hg / 95 mm Hg. Hypertension (high blood pressure) is blood pressure over 120/80. People with hypertension should contact their primary care provider within 30 days to follow up. Check your patient portal for additional blood pressure information. Immunizations: Immunization is a way to protect against deadly infections. Discuss this with your child's machinist supervisor, or Public Health Department. Your family practice doctor can determine if you need pneumonia or flu vaccine. The [facility] Department can be reached at . Substance Abuse Program: Concerns with addiction to alcohol, benzodiazepines (Ativan or Xanax) and Opiates (Heroin, Percocet, OxyContin, Methadone or Fentanyl)? [facility] offers an inpatient Substance Abuse Program to help treat the symptoms associated with medical detoxification of addictive substances. The new program offers care for non- adults (18 and older) looking to break the chain of addictive chemicals. The Substance Abuse Program is a voluntary inpatient admission and it starts with a pre-screening phone call to a school social worker. During the call, goals and objectives for recovery and how the patient will transition to outpatient care will be established. Please call [phone] to get help today. Domestic Violence: If you are a victim of domestic violence (physical, verbal, or emotional), you are not alone. Discuss this with your physician or a friend and call Choices Hotline ( for assistance and support. You are the most important factor in your recovery. Follow the provided instructions carefully. Take your medications as prescribed. Most importantly, see a doctor again as discussed. If you have problems that we have not discussed, call or visit your doctor right away. If you do not have a primary care physician, we have provided one for you to follow up with. When you call for an appointment, please inform them that you were seen in the emergency department and the date of your visit. If you are unable to reach your doctor and are still experiencing problems, return to the emergency department. For assistance finding a primary care physician, call the Physician Referral Line at . Suicide Hotline: Your mental and emotional well-being is important. If you are in a mental health crisis or are having thoughts of suicide, please call the nationwide suicide hotline, anytime day or night, at 5-097-883-ZGZN. Net [employer]alth: With [employer] online patient portal you can check your hospital medical information any time, review and keep track of prescriptions, quickly access radiology and basic lab results, review all of your immunizations, allergies and medical history. In addition you can view your account balances and make payments online as well as manage a [employer] account for another adult such as spouse, parent or friend. Based on the tests ordered, there may be a delay in results posting to the patient portal. It's easy to sign up for [employer]: 1. Visit Cl[employer] /Teamie 2. Click on ??[place] for [employer]ie' 3. Verify your identity by entering your last name and date of (MM/DD/YYYY) 4. You'll be asked to set up a username and password. 5. Next, you'll create three security questions. Be sure to supply answers that are not easy for others to guess or discover. 6. If all information (first name, last name and date of ) matches what we have on file, we'll then send a PIN to your phone that you'll be asked to enter. 7. When your identity is verified, you'll be able to access your patient record. 8. Once all of this is complete and you've successfully activated your account, you'll be redirected to the [employer]ie login page. Login and check to see your results. Questions? For help with account enrollment, call [employer] Customer Support toll-free at [phone]. Pharmacy Information: Below is a list of 24 hour pharmacies that we are aware of. We suggest that you call the specific pharmacy for their hours before traveling to a location. Hours may vary on holidays. [facility] [address], [place] [phone] [address] [place], [place] [address] [phone] [address] [place], [place] [address] [phone] [address], [place] [phone] [address] [place], [place] [phone] [address], [place] [phone] [place] [phone] Take all medications as directed. If you need prescription assistance, contact the following agencies: ?? Partnership for Prescription Assistance at or www.pparx.org ?? [place] at or www.Halo Neurosciencebestrx.org ?? Good Rx at or www.LinPrimRPlayEnable Patient Education Materials LIZ VENTURA has been given the following patient education materials: [facility] Emergency Department [address] [address] Work Release Form This notice verifies that your employee Liz Ventura was seen in this facility on 07/25/2020. He/she may return to work on ____07/26/2020 with the following restrictions: Other: No fevers or symptoms NOTE: If symptoms continue and the employee is unable to perform the full duties of their job by this date, please advise the employee to return to this facility or make an appointment with the referral physician for further evaluation. Dr. Isaac Mckeon ED Physician/Provider COVID-19: How to Protect Yourself Steps to Prevent Illness There is currently no vaccine to prevent coronavirus disease 2019 (COVID-19). The best way to prevent illness is to avoid being exposed to this virus. The virus is thought to spread mainly from ouiozu-xc-eqgvwo. ?? Between people who are in close contact with one another (within about 6 feet). ?? Through respiratory droplets produced when an infected person coughs or sneezes. ?? These droplets can land in the mouths or noses of people who are nearby or possibly be inhaled into the lungs. Older adults and people who have severe underlying chronic medical conditions like heart or lung disease or diabetes seem to be at higher risk for developing more serious complications from COVID-19 illness. Please consult with your health care provider about additional steps you may be able to take to protect yourself. Take Steps to Protect Yourself Clean your hands often: ?? Wash your hands often with soap and water for at least 20 seconds especially after you have been in a public place, or after blowing your nose, coughing, or sneezing. ?? If soap and water are not readily available, use a hand weathercaster that contains at least 60% alcohol. Cover all surfaces of your hands and rub them together until they feel dry. ?? Avoid touching your eyes, nose, and mouth with unwashed hands. Avoid close contact ?? Avoid close contact with people who are sick ?? Put distance between yourself and other people if COVID-19 is spreading in your community. This is especially important for people who are at higher risk of getting very sick. Take steps to protect others Stay home if you're sick ?? Stay home if you are sick, except to get medical care. Cover coughs and sneezes ?? Cover your mouth and nose with a tissue when you cough or sneeze or use the inside of your elbow. ?? Throw used tissues in the trash. ?? Immediately wash your hands with soap and water for at least 20 seconds. If soap and water are not readily available, clean your hands with a hand weathercaster that contains at least 60% alcohol. Wear a facemask if you are sick ?? If you are sick: You should wear a facemask when you are around other people (e.g., sharing a room or vehicle) and before you enter a healthcare provider's office. If you are not able to wear a facemask (for example, because it causes trouble breathing), then you should do your best to cover your coughs and sneezes, and people who are caring for you should wear a facemask if they enter your room. ?? If you are NOT sick: You do not need to wear a facemask unless you are caring for someone who is sick (and they are not able to wear a facemask). Facemasks may be in short supply and they should be saved for caregivers. Clean and disinfect ?? Clean AND disinfect frequently touched surfaces daily. This includes tables, doorknobs, light switches, countertops, handles, desks, phones, keyboards, toilets, faucets, and sinks. ?? If surfaces are dirty, clean them: Use detergent or soap and water prior to disinfection. For additional information, use the following web link or scan the QR Code using a QR code scanner on your smart phone. https://www.cdc.gov/c oronavirus/2019-ncov/ prepare/prevention.ht ml?CDC_AA_refVal=http s%3A%2F%2Fwww.cdc.gov %2Fcoronavirus%5M8037 -ncov%2Fabout%2Fpreve ntion.html Before you call for an appointment, please read this notice completely. [facility] wants to make sure that your follow-up care will not be delayed. Please let the emergency room staff know if you DO NOT meet ALL of the requirements listed below. They will then refer you elsewhere for timely care. Patients who are not eligible for [facility] provide high-quality health care for a variety of illnesses and injuries. However, [facility] are not able to serve all patients. [facility] cannot see patients: who are under 18. who have private medical insurance. who already have a family doctor or are seen at another clinic. who are on Medicare and have supplemental insurance. who have an injury that is/could be a worker's compensation claim - i.e., were hurt on the job. who are using/expecting payment from someone else's insurance - e.g., auto accident injuries when the patient is not the responsible libertarian. Patients who are eligible for [facility] see patients: who do not have a regular doctor or clinic that they see - no family doctor, no work-related clinic, etc. who do not have private or employer-provided insurance who are on Medicare/Medicaid without supplemental insurance. who have a [facility] insurance card that lists [facility] as the provider. Not all types of care are available at all [facility] locations. Here is a list of [facility] locations and phone numbers, along with a brief description of the services they offer. [facility] [address] [facility] [phone] Tuesday - Tuesday General medical/surgical and INTERN PRODUCT MARKETING MANAGER [facility] INTERN PRODUCT MARKETING MANAGER Clinic [address] [facility] New Patients Call: [phone] Established Patients Call: [phone] Tuesday - Tuesday [facility] [address] [place] [address] Tuesday - Tuesday Surgery and OB (no GOVERNMENT CLERK) [facility] [address] [facility] [phone] General medical [facility] [address] [place] [address] [facility] [address] [address] [phone] Tuesday - Tuesday (Walk-ins accepted) General medical [facility] [address] [phone] Tuesday - Tuesday General medical [facility] [address] [facility] [phone] Tuesday - Tuesday General medical Clinic hours vary; unless otherwise noted, [facility] see patients by appointment only. Some clinics do not accept Medicare patients. In addition to the above, there are other similar clinics throughout [facility]. Several such clinics are listed on the back of this notice, for your convenience. Non-[facility] in [facility] supplies this information for reference only, and is not responsible for changes in locations, hours, or services. This information was accurate at the time of printing. [facility] recommends checking all information listed here before choosing a clinic for your care. Call for hours, most clinics are by appointment only [facility][1] [address] [place] [address] [facility] [address] [place] [address] Henry Hobson [facility] [address] [place] [address] [facility] [address] [facility] [address] [phone] [facility] [address] [phone] [facility] [address] [facility], [address] [place] [phone] [facility] [[email or web address]] Primary Care Clinic [address] [phone] [facility] [[email or web address]] Close to Home Physician's Care Clinics [facility] [address] [phone] [facility] 8[address] [facility] [phone] [place] 1390 [facility] [phone] [place] 2370 [facility] [phone] [place] 579 [facility] [phone] [place] [address] [facility] [phone] [facility] [address] [phone] Opt[facility] [address] [phone] [facility] N118 [facility] [address] [phone] [facility] 1492 [facility] [phone] [facility] 2231 [facility] [phone] [facility] [phone] Free Clinic [phone] [facility] 33[address] [facility] [phone] [phone] [facility] 199 [facility] 1043 [facility] [phone] [facility] 1336 [facility] 240 [facility] [phone] [facility] [place] [phone] [facility] 171 [facility] [phone] [facility] [address] [facility] [phone] Allergy Cough, Adult A cough is a reflex that helps clear your throat and airways. It can help heal the body or may be a reaction to an irritated airway. A cough may only last 2 or 3 weeks (acute) or may last more than 8 weeks (chronic). CAUSES Acute cough: ???Viral or bacterial infections. Chronic cough: ???Infections. ???Allergies. ???Asthma. ???Post-nasal drip. ???Smoking. ???Heartburn or acid reflux. ???Some medicines. ???Chronic lung problems (COPD). ???Cancer. SYMPTOMS ???Cough. ???Fever. ???Chest pain. ???Increased breathing rate. ???High-pitched whistling sound when breathing (wheezing). ???Colored mucus that you cough up (sputum). TREATMENT ???A bacterial cough may be treated with antibiotic medicine. ???A viral cough must run its course and will not respond to antibiotics. ???Your caregiver may recommend other treatments if you have a chronic cough. HOME CARE INSTRUCTIONS ???Only take [id number] or prescription medicines for pain, discomfort, or fever as directed by your caregiver. Use cough suppressants only as directed by your caregiver. ???Use a cold steam vaporizer or humidifier in your bedroom or home to help loosen secretions. ???Sleep in a semi-upright position if your cough is worse at night. ???Rest as needed. ???Stop smoking if you smoke. SEEK IMMEDIATE MEDICAL CARE IF: ???You have pus in your sputum. ???Your cough starts to worsen. ???You cannot control your cough with suppressants and are losing sleep. ???You begin coughing up blood. ???You have difficulty breathing. ???You develop pain which is getting worse or is uncontrolled with medicine. ???You have a fever. MAKE SURE YOU: ???Understand these instructions. ???Will watch your condition. ???Will get help right away if you are not doing well or get worse. This information is not intended to replace advice given to you by your health care provider. Make sure you discuss any questions you have with your health care provider. Document Released: 03/17/2012 Document Revised: 12/11/2012 Document Reviewed: 11/26/2015 [employer] Interactive Patient Education ?2016 [employer] ><><><><><><><><><><> <><><><><><><><><><>< ><><><><><><><><><><> <> Patient Visit Summary Signature LIZ VENTURA has been given the following list of patient education materials, prescriptions and follow-up instructions: AUDREY Aguilar LISA L, have received the above patient education materials/instruction s and have verbalized understanding: Date Time Patient Signature /span> Date Time Provider Signature Normal [facility] XR Chest 2 Viewson 0 XR Chest 2 views EXAMINATION TYPE: XR Chest 2 Views DATE OF EXAM: 07/25/2020 10:51 AM HISTORY: Cough, COMPARISON: NONE NUMBER OF VIEWS: 2, PA and Lateral. FINDINGS: The heart is normal in size and the mediastinal outlines are normal in appearance. The lungs appear to be free of active infiltrates. The pulmonary vascular markings are within normal limits. The visualized bones and soft tissues are unremarkable. IMPRESSION: Normal chest.. [facility] thanks you for the opportunity to care for your patient. Workstation ID: [id number] - [id number] FINAL REPORT Dictated By: Que Og MD 07/25/2020 10:54 Assigned Physician: Que Og MD Reviewed and Electronically Signed By: Que Og MD 07/25/2020 10:55 Transcribed by: JEFF 07/25/2020 10:54 Technologist: BRENDA Brun[facility] Vital Signs Date Time Vital Sign Value Performing Clinician Facility 12-04-2024 07:30-0500 Body temperature 98.2 [degF] [facility] 12-04-2024 07:30-0500 Diastolic blood pressure 57 mm[Hg] [facility] 12-04-2024 07:30-0500 Heart rate 89 /min [facility] 12-04-2024 07:30-0500 Respiratory rate 18 /min [facility] 12-04-2024 07:30-0500 SaO2% (BldA) [Mass fraction] 95 % [facility] 12-04-2024 07:30-0500 Systolic blood pressure 125 mm[Hg] [facility] 12-03-2024 13:51-0500 Body height 170.18 cm [facility] 12-03-2024 09:00-0500 Body weight 81.08 kg [facility] 01-05-2024 09:03-0400 Body height 165.74 cm [facility] 01-05-2024 09:03-0400 Body mass index (BMI) [Ratio] 32.1 kg/m2 [facility] 01-05-2024 09:03-0400 Body weight 88.19 kg [facility] 01-05-2024 09:03-0400 Diastolic blood pressure 64 mm[Hg] [facility] 01-05-2024 09:03-0400 Heart rate 89 /min [facility] 01-05-2024 09:03-0400 Respiratory rate 18 /min [facility] 01-05-2024 09:03-0400 SaO2% (BldA) [Mass fraction] 99 % [facility] 01-05-2024 09:03-0400 Systolic blood pressure 118 mm[Hg] [facility] 10-24-2023 09:00-0500 Body height 165.74 cm Cory Snyderdiff Other [employer] Other 10-24-2023 09:00-0500 Body mass index (BMI) [Ratio] 33.5 kg/m2 Corysalvador Snyderdiff Other [employer] Other 10-24-2023 09:00-0500 Body weight 92.04 kg Cory Snyderdiff Other [employer] Other 10-24-2023 09:00-0500 Diastolic blood pressure 59 mm[Hg] Cory Alona Other [employer] Other 10-24-2023 09:00-0500 Respiratory rate 18 /min Cory Snyderdiff Other [employer] Other 10-24-2023 09:00-0500 SaO2% (BldA) [Mass fraction] 99 % Cory Snyderdiff Other [employer] Other 10-24-2023 09:00-0500 Systolic blood pressure 123 mm[Hg] Cory Sage Other [employer] Other 09-12-2023 10:45-0500 Body height 165.74 cm Cory Snyderdiff Other [employer] Other 09-12-2023 10:45-0500 Body mass index (BMI) [Ratio] 33.95 kg/m2 Cory Alona Other [employer] Other 09-12-2023 10:45-0500 Body weight 93.26 kg Cory Sage Other [employer] Other 09-12-2023 10:45-0500 Diastolic blood pressure 71 mm[Hg] Cory Sage Other [employer] Other 09-12-2023 10:45-0500 Respiratory rate 18 /min Cory Sage Other [employer] Other 09-12-2023 10:45-0500 SaO2% (BldA) [Mass fraction] 98 % Cory Snyderdiff Other [employer] Other 09-12-2023 10:45-0500 Systolic blood pressure 111 mm[Hg] Cory Sage Other [employer] Other 08-04-2023 08:00-0400 Body height 165.74 cm Cory Sage Other [employer] Other 08-04-2023 08:00-0400 Body mass index (BMI) [Ratio] 34.58 kg/m2 Cory Sage Other [employer] Other 08-04-2023 08:00-0400 Body weight 94.98 kg Cory Sage Other [employer] Other 08-04-2023 08:00-0400 Diastolic blood pressure 68 mm[Hg] Cory Snyderdiff Other [employer] Other 08-04-2023 08:00-0400 Respiratory rate 18 /min Cory Snyderdiff Other [employer] Other 08-04-2023 08:00-0400 SaO2% (BldA) [Mass fraction] 99 % Cory Sage Other [employer] Other 08-04-2023 08:00-0400 Systolic blood pressure 134 mm[Hg] Cory Sage Other [employer] Other 07-04-2023 08:15-0400 Body height 165.74 cm Justylet Other [employer] Other 07-04-2023 08:15-0400 Body mass index (BMI) [Ratio] 35.42 kg/m2 Roxana Fitt Other [employer] Other 07-04-2023 08:15-0400 Body weight 97.3 kg Roxana Fitt Other [employer] Other 06-14-2023 08:15-0400 Body height 165.74 cm Cory Sage Other [employer] Other 06-14-2023 08:15-0400 Body mass index (BMI) [Ratio] 35.43 kg/m2 Cory Sage Other [employer] Other 06-14-2023 08:15-0400 Body weight 97.34 kg Cory Sage Other [employer] Other 06-14-2023 08:15-0400 Diastolic blood pressure 66 mm[Hg] Cory Sage Other [employer] Other 06-14-2023 08:15-0400 Respiratory rate 18 /min Cory Sage Other [employer] Other 06-14-2023 08:15-0400 SaO2% (BldA) [Mass fraction] 97 % Cory Sage Other [employer] Other 06-14-2023 08:15-0400 Systolic blood pressure 134 mm[Hg] Cory Sage Other [employer] Other 05-03-2023 07:45-0400 Body height 165.74 cm Cory Sage Other [employer] Other 05-03-2023 07:45-0400 Body mass index (BMI) [Ratio] 36.44 kg/m2 Cory Sage Other [employer] Other 05-03-2023 07:45-0400 Body weight 100.11 kg Cory Sage Other [employer] Other 05-03-2023 07:45-0400 Diastolic blood pressure 72 mm[Hg] Cory Sage Other [employer] Other 05-03-2023 07:45-0400 Respiratory rate 18 /min Cory Sage Other [employer] Other 05-03-2023 07:45-0400 SaO2% (BldA) [Mass fraction] 97 % Cory Sage Other [employer] Other 05-03-2023 07:45-0400 Systolic blood pressure 130 mm[Hg] Cory Snyderdiff Other [employer] Other 03-18-2023 10:45-0400 Body height 165.74 cm Cory Sage Other [employer] Other 03-18-2023 10:45-0400 Body mass index (BMI) [Ratio] 37.75 kg/m2 Cory Sage Other [employer] Other 03-18-2023 10:45-0400 Body weight 103.69 kg Cory Sage Other [employer] Other 03-18-2023 10:45-0400 Diastolic blood pressure 75 mm[Hg] Cory Sage Other [employer] Other 03-18-2023 10:45-0400 Respiratory rate 18 /min Cory Sage Other [employer] Other 03-18-2023 10:45-0400 SaO2% (BldA) [Mass fraction] 99 % Cory Sage Other [employer] Other 03-18-2023 10:45-0400 Systolic blood pressure 129 mm[Hg] Cory Snyderdiff Other [employer] Other 01-07-2023 10:30-0400 Body height 165.74 cm Cory Sage Other [employer] Other 01-07-2023 10:30-0400 Body mass index (BMI) [Ratio] 39.08 kg/m2 Cory Sage Other [employer] Other 01-07-2023 10:30-0400 Body weight 107.37 kg Cory Snyderdiff Other [employer] Other 01-07-2023 10:30-0400 Diastolic blood pressure 70 mm[Hg] Cory Sage Other [employer] Other 01-07-2023 10:30-0400 Respiratory rate 18 /min Cory Sage Other [employer] Other 01-07-2023 10:30-0400 SaO2% (BldA) [Mass fraction] 99 % Cory Sage Other [employer] Other 01-07-2023 10:30-0400 Systolic blood pressure 135 mm[Hg] Cory Snyderdiff Other [employer] Other 11-26-2022 09:00-0500 Body height 165.74 cm Cory Sage Other [employer] Other 11-26-2022 09:00-0500 Body mass index (BMI) [Ratio] 40.34 kg/m2 Croy Snyderdiff Other [employer] Other 11-26-2022 09:00-0500 Body weight 110.81 kg Cory Snyderdiff Other [employer] Other 11-26-2022 09:00-0500 Diastolic blood pressure 74 mm[Hg] Cory Snyderdiff Other [employer] Other 11-26-2022 09:00-0500 Respiratory rate 18 /min Cory Snyderdiff Other [employer] Other 11-26-2022 09:00-0500 SaO2% (BldA) [Mass fraction] 97 % Cory Alona Other [employer] Other 11-26-2022 09:00-0500 Systolic blood pressure 129 mm[Hg] Cory Sage Other [employer] Other 10-14-2022 12:00-0500 Body height 165.74 cm Cory Sage Other [employer] Other 10-14-2022 12:00-0500 Body mass index (BMI) [Ratio] 39.13 kg/m2 Cory Sage Other [employer] Other 10-14-2022 12:00-0500 Body weight 107.5 kg Cory Snyderdiff Other [employer] Other 10-14-2022 12:00-0500 Diastolic blood pressure 78 mm[Hg] Cory Sage Other [employer] Other 10-14-2022 12:00-0500 Respiratory rate 18 /min Cory Sage Other [employer] Other 10-14-2022 12:00-0500 SaO2% (BldA) [Mass fraction] 97 % Cory Snyderdiff Other [employer] Other 10-14-2022 12:00-0500 Systolic blood pressure 120 mm[Hg] Coyr Snyderdiff Other [employer] Other 08-30-2022 11:00-0500 Body height 170.18 cm Anna Doan Other [employer] Other 08-30-2022 11:00-0500 Body mass index (BMI) [Ratio] 37.12 kg/m2 Anna Doan Other [employer] Other 08-30-2022 11:00-0500 Body temperature 98.1 [degF] Anna Doan Other [employer] Other 08-30-2022 11:00-0500 Body weight 107.5 kg Anna Doan Other [employer] Other 08-30-2022 11:00-0500 Diastolic blood pressure 70 mm[Hg] Anna Doan Other [employer] Other 08-30-2022 11:00-0500 Respiratory rate 18 /min Anna Doan Other [employer] Other 08-30-2022 11:00-0500 SaO2% (BldA) [Mass fraction] 97 % Anna Doan Other [employer] Other 08-30-2022 11:00-0500 Systolic blood pressure 128 mm[Hg] Anna Doan Other [employer] Other 12-21-2021 12:00-0400 Body height 170.18 cm Anna Doan Other [employer] Other 12-21-2021 12:00-0400 Body mass index (BMI) [Ratio] 36.96 kg/m2 Anna Tanault Other [employer] Other 12-21-2021 12:00-0400 Body weight 107.05 kg Anna Tanault Other [employer] Other 12-21-2021 12:00-0400 Diastolic blood pressure 78 mm[Hg] Anna Tanault Other [employer] Other 12-21-2021 12:00-0400 Respiratory rate 18 /min Anna Olimpia Other [employer] Other 12-21-2021 12:00-0400 SaO2% (BldA) [Mass fraction] 97 % Anna Tanault Other [employer] Other 12-21-2021 12:00-0400 Systolic blood pressure 140 mm[Hg] Anna Tanault Other [employer] Other 10-27-2021 11:00-0500 Body height 170.18 cm Anna Tanault Other [employer] Other 10-27-2021 11:00-0500 Body mass index (BMI) [Ratio] 36.02 kg/m2 Anna Tanault Other [employer] Other 10-27-2021 11:00-0500 Body temperature 98.1 [degF] Anna Olimpia Other [employer] Other 10-27-2021 11:00-0500 Body weight 104.33 kg Anna Tanault Other [employer] Other 10-27-2021 11:00-0500 Diastolic blood pressure 80 mm[Hg] Anna Olimpia Other [employer] Other 10-27-2021 11:00-0500 Respiratory rate 18 /min Anna Doan Other [employer] Other 10-27-2021 11:00-0500 SaO2% (BldA) [Mass fraction] 99 % Anna Doan Other [employer] Other 10-27-2021 11:00-0500 Systolic blood pressure 138 mm[Hg] Anna Doan Other [employer] Other 09-21-2021 11:00-0500 Body height 170.18 cm Anna Doan Other [employer] Other 09-21-2021 11:00-0500 Body mass index (BMI) [Ratio] 36.8 kg/m2 Anna Doan Other [employer] Other 09-21-2021 11:00-0500 Body temperature 96.6 [degF] Anna Doan Other [employer] Other 09-21-2021 11:00-0500 Body weight 106.6 kg Anna Doan Other [employer] Other 09-21-2021 11:00-0500 Diastolic blood pressure 47 mm[Hg] Anna Tanault Other [employer] Other 09-21-2021 11:00-0500 Respiratory rate 18 /min Anna Doan Other [employer] Other 09-21-2021 11:00-0500 SaO2% (BldA) [Mass fraction] 99 % Anna Tanault Other [employer] Other 09-21-2021 11:00-0500 Systolic blood pressure 128 mm[Hg] Anna Doan Other [employer] Other 07-14-2021 11:00-0400 Body height 170.18 cm Anna Tanault Other [employer] Other 07-14-2021 11:00-0400 Body mass index (BMI) [Ratio] 35.58 kg/m2 Anna Doan Other [employer] Other 07-14-2021 11:00-0400 Body temperature 97.8 [degF] Anna Tanault Other [employer] Other 07-14-2021 11:00-0400 Body weight 103.06 kg Anna Tanault Other [employer] Other 07-14-2021 11:00-0400 Diastolic blood pressure 76 mm[Hg] Anna Doan Other [employer] Other 07-14-2021 11:00-0400 Respiratory rate 18 /min Anna Doan Other [employer] Other 07-14-2021 11:00-0400 SaO2% (BldA) [Mass fraction] 97 % Anna Tanault Other [employer] Other 07-14-2021 11:00-0400 Systolic blood pressure 133 mm[Hg] Anna Tanault Other [employer] Other 06-26-2021 17:15-0400 Body height 170.18 cm Emma Cobb Other [employer] Other 06-26-2021 17:15-0400 Body mass index (BMI) [Ratio] 33.67 kg/m2 Emma Cobb Other [employer] Other 06-26-2021 17:15-0400 Body weight 97.52 kg Emma Cobb Other [employer] Other Encounters Encounter Date Encounter Type Care Provider Facility Start: 12-02-2024 Non-patient / Non-visit Anna Doan DRUG PURCHASER-C [facility] Work Phone: Start: 12-01-2024 End: 12-04-2024 Evaluation and management of inpatient Anna Doan DRUG PURCHASER-C [facility] [place] [address] Work Phone: Start: 12-01-2024 ambulatory Boogie Greenfield acility:[facility] Start: 12-01-2024 Registered Recurring Anna Doan DRUG PURCHASER-C [facility] Start: 01-05-2024 End: 01-05-2024 Patient encounter procedure [facility] Work Phone: Start: 10-24-2023 End: 10-24-2023 ambulatory Cory Sage Other [facility] [employer] Other Start: 10-24-2023 Follow-up encounter [facility] Start: 10-17-2023 End: 10-17-2023 ambulatory DRUG PURCHASER-C Anna Doan [facility] Work Phone: Start: 10-17-2023 End: 10-17-2023 Patient encounter procedure DRUG PURCHASER-Katherin Doan [facility] [place] Work Phone: Start: 09-12-2023 End: 09-12-2023 ambulatory Cory Sage Other [employer] Other Start: 09-12-2023 Follow-up encounter Cory [facility] Start: 09-12-2023 IBT for Obesity subQ 15 min (Max charge 2 units) Roxana Emilemanuel [facility] Start: 09-12-2023 Registered Recurring FRANCISCO Mehta [facility] Work Phone: Start: 08-04-2023 End: 08-04-2023 ambulatory Cory Snyderdiff Other [employer] Other Start: 08-04-2023 Follow-up encounter Cory [facility] Start: 07-04-2023 ([facility]) [facility]N Initial Provider Roxana Baptistemanuel [facility] Start: 07-04-2023 End: 07-04-2023 ambulatory Roxanaward Herrera Other [employer] Other Start: 06-14-2023 End: 06-14-2023 ambulatory Cory Snyderdiff Other [employer] Other Start: 06-14-2023 Follow-up encounter Cory Alonajay jay [facility] Start: 05-03-2023 End: 05-03-2023 ambulatory Cory Sage Other [employer] Other Start: 05-03-2023 Follow-up encounter Cory Snyderdijay jay [facility] Start: 03-18-2023 End: 03-18-2023 ambulatory Cory Troyff Other [employer] Other Start: 03-18-2023 Follow-up encounter Cory Snyderdijay jay tillmans [facility] Start: 03-02-2023 End: 03-02-2023 ambulatory Cory Sage Other [employer] Other Start: 03-02-2023 Telephone encounter Cory [facility] Start: 01-07-2023 End: 01-07-2023 ambulatory Cory Sage Other [employer] Other Start: 01-07-2023 Follow-up encounter Cory [facility] Start: 11-26-2022 End: 11-26-2022 ambulatory Cory Sage Other [employer] Other Start: 11-26-2022 Follow-up encounter Cory [facility] Start: 10-29-2022 End: 10-29-2022 ambulatory Cory Sage Other [employer] Other Start: 10-29-2022 Telephone encounter Cory [facility] Start: 10-14-2022 End: 10-14-2022 ambulatory Cory Sage Other [employer] Other Start: 10-14-2022 Encounter for genera l adult medical examination without abnormal findings Cory Sage [facility] Start: 10-14-2022 Nutrition therapy Cory Alona [facility] Start: 08-30-2022 End: 08-30-2022 ambulatory Anna Doan Other [employer] Other Start: 08-30-2022 Office outpatient visit 15 minutes Anna Doan [facility] Start: 12-21-2021 End: 12-21-2021 ambulatory Anna Doan Other [employer] Other Start: 12-21-2021 Office outpatient visit 15 minutes Anna Doan [facility] Start: 11-02-2021 End: 11-02-2021 ambulatory Anna Olimpia Other [employer] Other Start: 11-02-2021 Telephone encounter Anna Breaul t [facility] Start: 10-27-2021 End: 10-27-2021 ambulatory Anna Olimpia Other [employer] Other Start: 10-27-2021 Office outpatient visit 15 minutes Anna Olimpia [facility] Start: 09-30-2021 End: 09-30-2021 ambulatory Anna Olimpia Other [employer] Other Start: 09-30-2021 Telephone encounter Annajazmyne Hobsonl t [facility] Start: 09-21-2021 End: 09-21-2021 ambulatory Annajazmyne Doan Other [employer] Other Start: 09-21-2021 Office outpatient visit 15 minutes Anna Olimpia [facility] Start: 07-14-2021 Office outpatient visit 15 minutes Anna Olimpia [facility] Start: 06-29-2021 End: 06-29-2021 ambulatory ANNAJAZMYNE DOAN Facility:[facility] Start: 06-28-2021 ambulatory ANNA DOAN Facil ity:[facility] Start: 06-27-2021 Telephone encounter Annajazmyne Hobsonl t [facility] Start: 06-26-2021 ([facility]) Urgent Care Visit Emma oCbb [facility] Start: 06-10-2021 End: 06-10-2021 ambulatory ANNA OLIMPIA Facility:[facility] Plan of Treatment Date Care Activity Detail Author Start: 12-04-2024 [facility] Start: 12-01-2024 Hospital admission [facility] Patient Education Schizophrenia - Discharge instructions [facility] Health [place] Instructions Know your Meds [facility] Work Phone: Patient referral [facility] Work Phone: Payers Date Payer Category Payer [facility] [id number] 1970 Unknown [id number] 1970 Unknown [id number] 1970 Unknown [id number] 1959 Self-pay 1959 Unknown [id number] Unknown [id number] [id number] Unknown [id number] Social History Date Type Detail Facility Unknown if ever smoked [facility] [employer] Other Sex Assigned At Sex Assigned At Bir th [employer] Other Start: 1970 Sex Assigned At Female F [facility] Start: 12-02-2024 Tobacco smoking status NHIS Smoker (finding) [facility] Start: 12-04-2024 Sex Female (finding) [facility] Goals Date Patient Goal Desired Activity /State Functional Status Date Assessment Result Facility 12-04-2024 Functional status Patient at [facility] Work Phone: Mental Status Date Assessment Result Facility 12-04-2024 Cognitive function Cognitive Sta tus Patient at [facility] Work Phone: Clinical Notes 06-26-2021 to 12-03-2024 Note Date & Type Note Facility 12-03-2024 Progress note Note Date/Time December 03, 2024 3:35 pm [facility] [address] [place] [address] Psychiatry Progress Note Signed Patient: Liz Ventura MR#: [id number] : 1970 Acct:[id number] Age/Sex: 54 / F Adm Date: 5 Loc: 1S Room: [address] [place] [address] Type : ADM IN Attending Dr: Boogie Camilo MD Copies to: ~ Date of Service: 12/03/2024 Subjective Subjective Narrative: Ms. Ventura states that she is doing really well today. She got 8 hours of sleeplast night which is the most she is gotten in a long time. Denies any medication side effects, anxiety, depression, SI, HI, or AVH. Overall, patient appears to be highly motivated and has a positive outlook. She is looking forward to her daughter from [place] moving in with her and getting back into yoga and sabianist. She is excited to see her dog upon discharge. Patient is participating in group. Patient was personally seen by me on the day of the encounter. I reviewed the history and performed the tom elements of the physical examination. I formulated the plan of care and confirmed this with the medical student as notedbelow. Mental Status Exam: Mental Status: mental status grossly normal Mood: good Affect: euthymic Speech and Movement: speech and movement normal and speech clear Attitude: cooperative Thought Process: normal Thought Content: Denies HI, AVH, SI Insight: Improving Judgment: Improving Exam Physical Exam Vital Signs: Temp Pulse Resp BP Pulse Ox O2 Del Method 98.9 F 83 18 121/78 95 Room Air 12/03/24 07:30 12/03/24 07:30 12/03/24 07:30 12/03/24 07:30 12/03/24 07:30 12/03/24 07:30 Assessment/Plan Assessment/Plan (1) Schizophrenia: (2) Suicidal ideation: Plan Patient admitted for suicidal ideation. Hx of schizophrenia and noncompliance with medications. Patient improving. Potential discharge for tomorrow Continue Abilify 2mg PO QHS, Lexapro 5 mg PO daily. Consider long acting IM Abilify, at this time patient is not interested Continue to monitor mental status Encourage group participation and medication compliance Risk, benefits, and alternatives explained Documented By: Daniel Enciso MD 12/03/24 5718 Signed By: <Electronically signed by Daniel Enciso MD> 12/03/24 4035 [facility] Work Phone: 1(111) 592-543203-03-2025 [place] [address] Psychiatry Progress Note Signed Patient: Liz Ventura MR#: [id number] : 1970 Acct:[id number] Age/Sex: 54 / F Adm Date: 5 Loc: 1S Room: [address] [place] [address] Type : ADM IN Attending Dr: Boogie Camilo MD Copies to: ~ Date of Service: 12/03/2024 Subjective Subjective Narrative: Ms. Ventura states that she is doing really well today. She got 8 hours of sleeplast night which is the most she is gotten in a long time. Denies any medication side effects, anxiety, depression, SI, HI, or AVH. Overall, patient appears to be highly motivated and has a positive outlook. She is looking forward to her daughter from [place] moving in with her and getting back into yoga and sabianist. She is excited to see her dog upon discharge. Patient is participating in group. Patient was personally seen by me on the day of the encounter. I reviewed the history and performedthe tom elements of the physical examination. I formulated the plan of care and confirmed this withthe medical student as notedbelow. Mental Status Exam: Mental Status: mental status grossly normal Mood: good Affect: euthymic Speech and Movement: speech and movement normal and speech clear Attitude: cooperative Thought Process: normal Thought Content: Denies HI, AVH, SI Insight: Improving Judgment: Improving Exam Physical Exam Vital Signs: Temp Pulse Resp BP Pulse Ox O2 Del Method 98.9 F 83 18 121/78 95 Room Air 12/03/24 07:30 12/03/24 07:30 12/03/24 07:30 12/03/24 07:30 12/03/24 07:30 12/03/24 07:30 Assessment/Plan Assessment/Plan (1) Schizophrenia: (2) Suicidal ideation: Plan Patient admitted for suicidal ideation. Hx of schizophrenia and noncompliance with medications. Patient improving. Potential discharge for tomorrow Continue Abilify 2mg PO QHS, Lexapro 5 mg PO daily. Consider long acting IM Abilify, at this time patient is not interested Continue to monitor mental status Encourage group participation and medication compliance Risk, benefits, and alternatives explained Documented By: Daniel Enciso MD 12/03/24 0927 Signed By: 12/03/24 1535 [facility]03-02-2025 History and physical note Author Boogie hu [facility] Note Date/Time December 02, 2024 1:54 pm [facility] [address] [place] [address] Psychiatry H&P Signed Patient: Liz Ventura MR#: [id number] : 1970 Acct:[id number] Age/Sex: 54 / F Adm Date: 5 Loc: 1S Room: [address] [place] [address] Type: ADM IN Attending Dr: Boogie Camilo MD Copies to: Boogie Camilo MD NO FAMILY PHYSICIAN~ Date of Service: 12/02/2024 HPI History of Present Illness History of present illness: Ms. Ventura is a 54 year old female with a reported history of schizophrenia, PTSD, ADHD presents for inpatient admission due to hallucinations and suicidal ideation. Reportedly, patient arrived from [facility] to [facility] 1 S for prior AVH and remarks of self-harm for the past week. Patient denied any current AVH or SI during admission. Patient becomes tearful when asking about her life, weakness and strength stating I have none. I put everyone's problems before my own. I need to get back on my medications to get my head straight because I know I'm not feeling normal . States she tried to OD on pills 13 years ago. Per [facility] last attempt to harm self was 2 days ago by carbon monoxide in garage but she turned off car after couple minutes. Admitsto no psych medications for months and using cocaine at times to help with her feelings but denies dependency of use. Denies any medical issues other that prediabetes that went away after losing weight . Taking Adipex and has lost 55 pounds and uses medical THC. States her live in boyfriend is her support and feels safe to return to their home. Patient was personally seen by me on the day of the encounter. I reviewed the history and performed the tom elements of the assessment. I formulated the planof care and confirmed this with the medical student as noted below At the time of interview, she presented as pleasant and highly motivated. Patient states that she stopped her psychiatric medications about a year and a half ago. She continued to experience auditory and visual hallucinations since then. She tried to keep herself busy, would sleep with a fan and would listen to music to help to calm the voices. In August 2024, she started to experiment with cocaine as a form of self medication. She states that the voices will vary. Some of them will sound like her mom/sister who she has not seen in about10 to 20 years. Other voices will tell her to kill herself. Today she denies any depression and anxiety. She states that she feels so good and positive about being in here . She feels motivated to get back on some medications. Patient reports that she found out yesterday that her daughter will be moving uphere and begins to cry with excitement about it. Denies any current AVH, SI, HI. Past Psych History: Schizophrenia, PTSD, ADHD Previous Psych Hospitalizations: many Past Suicide attempts: Patient reports an attempt of trying to overdose on pills13 years ago. Family Psych History: mother, maternal grandmother, maternal great-grandfather with schizophrenia Past Psych Meds: Patient reports being noncompliant with medications Alcohol and drug use: Cocaine, medical marijuana Living Situation: Lives with boyfriend Employment: Patient reports that she is off work until March Relationships: Patient identifies her boyfriend as her support system. Review of Systems: Constitutional: Denies chills and Denies fever(s) Eyes: Denies change in vision ENT: Denies abnormal hearing Cardiovascular: Denies chest pain Respiratory: Denies chest congestion and Denies cough Gastrointestinal: Denies change in bowel habits Genitourinary: Admits dysuria Musculoskeletal: Denies pain or paresthesias Integumentary/Breasts: Denies dry skin Neurologic: Denies abnormal gait and Denies abnormal movements Psychiatric: Admits suicidal ideation and AVH on admission Physical exam: General: not in any acute distress Skin: intact HEENT: head atraumatic, face symmetrical. Pulm: breathing normally without excessive effort Cardio: heart is regular Abdomen: Normal inspection Musculoskeletal: Moves all extremities, normal strength all extremities. Neuro: Pt alert, oriented x3 CN: Normal olfaction CNII: Visual dailey intact CNIII,IV,: EOM intact, no nystagmus. CNV: Sensation intact to light touch. CNVII: Raises eyebrows, smile/frown, puff out cheeks symmetrically. CNVIII: Hearing intact bilaterally. CNIX,X: Voice normal, soft palate elevation normal, symmetrical. CNXI: Shoulder shrug strong, equal bilaterally. CNXII: Tongue protrusion midline Mental Status Exam: Mental Status: mental status grossly normal Mood: good Affect: labile Speech and Movement: speech and movement normal and speech clear Attitude: cooperative Thought Process: normal Thought Content: Reported AVH and SI on admission, denies HI Insight: limited Judgment: limited [facility] Medical History (Updated 12/02/24 @ 09:12 by Aleshia De Dios) Memory loss BRYCE (generalized anxiety disorder) Acute right-sided low back pain with right-sided sciatica Schizophrenia Hypercholesterolemia GERD (gastroesophageal reflux disease) Depression with anxiety Acanthosis nigricans Post traumatic stress disorder (PTSD) Surgical History Hx of section Family History Father Diabetes Mother Diabetes Social History Smoking Status: Current every day smoker Tobacco Type: smokeless tobacco Substance Use Type: Marijuana, Cocaine and Amphetamines Substance Abuse Comment: Amphetamines RX for weight loss. Meds Medications and Allergies Allergies No Known Allergies Allergy (Verified 09/04/24 10:16) Home Medications metformin 500 mg tablet,extended release 24 hr 500 mg PO DAILY #30 tabs 09/04/24[Rx Confirmed 12/01/24] phentermine 37.5 mg tablet 37.5 mg PO DAILY 30 days #30 tabs 09/04/24 [Rx Confirmed 12/01/24] rosuvastatin 10 mg tablet 10 mg PO DAILY #30 tabs 09/04/24 [Rx Confirmed 12/01/24] omeprazole 20 mg tablet,delayed release 20 mg PO DAILY 12/01/24 [History Confirmed 12/01/24] Exam Physical Exam Vital Signs: Temp Pulse Resp BP Pulse Ox O2 Del Method 98.1 F 87 16 125/84 99 Room Air 12/01/24 19:25 12/01/24 19:25 12/01/24 19:25 12/01/24 19:25 12/01/24 19:25 12/01/24 19:25 Assessment/Plan (1) Schizophrenia: (2) Suicidal ideation: Plan Patient admitted for suicidal ideation. Hx of schizophrenia and noncompliance with medications. Start Abilify 2mg PO QHS, Lexapro 5 mg PO daily Continue to monitor mental status Encourage group participation and medication compliance Risk, benefits, and alternatives explained Documented By: Boogie Camilo MD 5 [id number] Signed By: <Electronically signed by Boogie Camilo MD> 12/02/24 5344 [facility] Work Phone: 1(870) 256-151203-02-2025 [place] [address] Psychiatry H&P Signed Patient: Liz Ventura MR#: [id number] : 1970 Acct:[id number] Age/Sex: 54 / F Adm Date: 5 Loc: 1S Room: [address] [place] [address] Type: ADM IN Attending Dr: Boogie Camilo MD Copies to: Boogie Camilo MD NO FAMILY PHYSICIAN~ Date of Service: 12/02/2024 HPI History of Present Illness History of present illness: Ms. Ventura is a 54 year old female with a reported history of schizophrenia, PTSD, ADHD presents for inpatient admission due to hallucinations and suicidal ideation. Reportedly, patient arrived from [facility] to [facility] S for prior AVH and remarks of self-harm for the past week. Patient denied any current AVH or SI during admission. Patient becomes tearful when asking about her life, weakness and strength stating I have none. I put everyone's problems before my own. I need to get back on my medications to get my head straight because I know I'm not feeling normal . States she tried to OD on pills 13 years ago. Per [facility] last attempt to harm self was 2 days ago by carbon monoxide in garage but she turned off car after couple minutes. Admitsto no psych medications for months and using cocaine at times to help with her feelings but denies dependency of use. Denies any medical issues other that prediabetes that went away after losing weight . Taking Adipex and has lost 55 pounds and uses medical THC. States her live in boyfriend is her support and fe els safe to return to their home. Patient was personally seen by me on the day of the encounter. I reviewed the history and performedthe tom elements of the assessment. I formulated the planof care and confirmed this with the medical student as noted below At the time of interview, she presented as pleasant and highly motivated. Patient states that she stopped her psychiatric medications about a year and a half ago. She continued to experience auditoryand visual hallucinations since then. She tried to keep herself busy, would sleep with a fan and would listen to music to help to calm the voices. In August 2024, she started to experiment with cocaine as a form of self medication. She states that the voices will vary. Some of them will sound like her mom/sister who she has not seen in about10 to 20 years. Other voices will tell her to kill herself. Today she denies any depression and anxiety. She states that she feels so good and positive about being in here . She feels motivated to get back on some medications. Patient reports that she found out yesterday that her daughter will be moving uphere and begins to cry with excitement about it. Denies any current AVH, SI, HI. Past Psych History: Schizophrenia, PTSD, ADHD Previous Psych Hospitalizations: many Past Suicide attempts: Patient reports an attempt of trying to overdose on pills13 years ago. Family Psych History: mother, maternal grandmother, maternal great-grandfather with schizophrenia Past Psych Meds: Patient reports being noncompliant with medications Alcohol and drug use: Cocaine, medical marijuana Living Situation: Lives with boyfriend Employment: Patient reports that she is off work until March Relationships: Patient identifies her boyfriend as her support system. Review of Systems: Constitutional: Denies chills and Denies fever(s) Eyes: Denies change in vision ENT: Denies abnormal hearing Cardiovascular: Denies chest pain Respiratory: Denies chest congestion and Denies cough Gastrointestinal: Denies change in bowel habits Genitourinary: Admits dysuria Musculoskeletal: Denies pain or paresthesias Integumentary/Breasts: Denies dry skin Neurologic: Denies abnormal gait and Denies abnormal movements Psychiatric: Admits suicidal ideation and AVH on admission Physical exam: General: not in any acute distress Skin: intact HEENT: head atraumatic, face symmetrical. Pulm: breathing normally without excessive effort Cardio: heart is regular Abdomen: Normal inspection Musculoskeletal: Moves all extremities, normal strength all extremities. Neuro: Pt alert, oriented x3 CN: Normal olfaction CNII: Visual dailey intact CNIII,IV,: EOM intact, no nystagmus. CNV: Sensation intact to light touch. CNVII: Raises eyebrows, smile/frown, puff out cheeks symmetrically. CNVIII: Hearing intact bilaterally. CNIX,X: Voice normal, soft palate elevation normal, symmetrical. CNXI: Shoulder shrug strong, equal bilaterally. CNXII: Tongue protrusion midline Mental Status Exam: Mental Status: mental status grossly normal Mood: good Affect: labile Speech and Movement: speech and movement normal and speech clear Attitude: cooperative Thought Process: normal Thought Content: Reported AVH and SI on admission, denies HI Insight: limited Judgment: limited [facility] Medical History (Updated 12/02/24 @ 09:12 by Aleshia De Dios) Memory loss BRYCE (generalized anxiety disorder) Acute right-sided low back pain with right-sided sciatica Schizophrenia Hypercholesterolemia GERD (gastroesophageal reflux disease) Depression with anxiety Acanthosis nigricans Post traumatic stress disorder (PTSD) Surgical History Hx of section Family History Father Diabetes Mother Diabetes Social History Smoking Status: Current every day smoker Tobacco Type: smokeless tobacco Substance Use Type: Marijuana, Cocaine and Amphetamines Substance Abuse Comment: Amphetamines RX for weight loss. Meds Medications and Allergies Allergies No Known Allergies Allergy (Verified 09/04/24 10:16) Home Medications metformin 500 mg tablet,extended release 24 hr 500 mg PO DAILY #30 tabs 09/04/24[Rx Confirmed 12/01/24] phentermine 37.5 mg tablet 37.5 mg PO DAILY 30 days #30 tabs 09/04/24 [Rx Confirmed 12/01/24] rosuvastatin 10 mg tablet 10 mg PO DAILY #30 tabs 09/04/24 [Rx Confirmed 12/01/24] omeprazole 20 mg tablet,delayed release 20 mg PO DAILY 12/01/24 [History Confirmed 12/01/24] Exam Physical Exam Vital Signs: Temp Pulse Resp BP Pulse Ox O2 Del Method 98.1 F 87 16 125/84 99 Room Air 12/01/24 19:25 12/01/24 19:25 12/01/24 19:25 12/01/24 19:25 12/01/24 19:25 12/01/24 19:25 Assessment/Plan (1) Schizophrenia: (2) Suicidal ideation: Plan Patient admitted for suicidal ideation. Hx of schizophrenia and noncompliance with medications. Start Abilify 2mg PO QHS, Lexapro 5 mg PO daily Continue to monitor mental status Encourage group participation and medication compliance Risk, benefits, and alternatives explained Documented By: Boogie Camilo MD 5 [id number] Signed By: 12/02/24 1354 [facility]03-01-2025 Evaluation note* Diagnosis Onset Date Resolution Status Admit Date Schizophrenia acute December 01, 2024 2:26pm Suicidal ideation acute December 012024 2:26pm [facility] Work Phone: 1(748) 985-784204-04-2024 Evaluation note* Author Cory Sage [facility] Authored January 05, 2024 9:39 am Start weight: 237.0 lbs., sh e is down 42.3 lbs. today with a weight of 194.7 lbs. she is down 8.2 lbs. since her last visit on 10/24/2023. Starting Date: 10-14-2022. Metformin start date 11/22/2022. Phentermine start date 02/18/2023. Phentermine start weight 235 pounds. She is down 40.3 lbs since starting phentermine. She is a greater than 5% responder at 3 months so phentermine can be continued. 1. Abnormal weight gain. She does have apple shaped obesity. She has a strong family history of obesity in both her mom dad and her sister. She notes both her mom and dad are type II diabetic. 2. Obesity-significant improvement on phentermine now at 37.5 mg with a greater than 15% weight loss without any side effects or problems and she has more energy. She had never gotten full before phentermine. We can continue to use long-term if she continues to have a greater than 5% weight loss. Phentermine also helps her focus. There was concern she may have ADHD which has improved with the phentermine. Will try to find the lowest effective dose in the future. Her mental health therapist felt that she could take any of the weight loss medications as she does not feel that she has bipolar or has any significant ongoing mental health issues. Her mood has been good/improved with taking phentermine. She will continue taking metformin at 1000 mg for diabetic prevention/acanthosis nigracans. She is having no side effects. She is not using her medical marijuana since starting our program. She is trying to find other more healthy ways to deal with stress. Her mental health is good/better with adding phentermine. Wegovy or Ozempic are not covered by her insurance. Before starting our program, she did have issues with nighttime eating disorder which is now resolved. She is now not skipping breakfast and eating healthy [employer]/following the plate method. She should continue metformin for her insulin resistance. She will continue to treat with long-term lifestyle changes of improved nutrition, increased exercise and activity, stress reduction, adequate sleep and behavioral modification versus short-term dieting. Before starting the program the biggest reasons for weight struggles include constant food thoughts/cravings, family weight issues, health issues. Exercise before starting the program: walking 3-4 times a week, hiking, stationary bike. She is now walking daily. She is getting a pool installed at her house and she notes she has a golf simulator. She wants to lose weight to feel healthier and to be able to be more active, as she feels her weight holds her back. Before starting the program, she felt she ate healthy but did note that she had cravings for unhealthy foods such as pizza and chocolate. She loves her job. She feels that her job is very active she is on her feet 13 hours a day and she notes she also does a lot of walking 3 to 4 miles during her work shift. Her A1c with starting the program showed that she was almost prediabetic with an A1c of 5.6. Her exam significant acanthosis nigracans and skin tags. So she can get shaky sometimes if its been a while since she has had a meal and feel like she needs to eat. Her PHQ-9 was 19 with starting the program and she has a remote history of possible bipolar disorder, schizoaffective disorder, PTSD and anxiety which she treated in the past with medical marijuana on a as needed basis she notes only once or twice a week. She is now able to avoid medical marijuana. Before starting the program she did not feel she is depressed although she does note some seasonal changes in her mood. 3. Remote possible history of bipolar disorder/schizoaffective disorder/childhood PTSD/anxiety-her mood is improved with her weight loss success and lifestyle change. She has noted that according to the patient her therapist does not feel she has bipolar disorder. She does not feel that she is depressed. She does feel that she has a positive mood. She does note some seasonal changes. She does follow-up with a counselor. She does not see a psychiatric prescriber. She is not interested in psychiatric medications. Her PHQ was 19 with starting the program. Her mood is better now with successful weight loss and phentermine. She is now not requiring medical marijuana. 4. GERD-controlled with PPI OTC. Treat with antireflux diet and weight loss. 5. [place] of 14/she notes previous negative work-up for obstructive sleep apnea/denies snoring/neck size of 15 inches/mallampati score 3-treat with healthy lifestyle change and weight loss. 6. Hypercholesterolemia-marked improvement now on Crestor 10 mg with her LDL down to 93 without side effects. Treat with decreasing the bad fats, added fats, increase activity and exercise and achieve long-term weight loss. Her LDL was 194. Unfortunately her HDL is still low at 44 now. She probably has a familial hypercholesterolemia and she does have a strong family history of premature CAD. Monitor with lifestyle change and statin. 7. Acanthosis nigracans/insulin resistance with fasting insulin level of [id number] treatment with lifestyle change, decrease simple sweets and starches, increased exercise and weight loss. Treat with metformin. I had recommended a GLP-1 agonist but was not covered by insurance. She needs close long-term follow-up this condition to prevent diabetes. Follow up with me in 6 weeks. New labs needed: Up-to-date. We will do yearly blood work including CMP, B12 level and cholesterol profile in October 2024. [facility] Work Phone: 1(244) 614-179201-22-2024 Evaluation note* Encounter Date Diagnosis Assessment Notes Treatment Notes Treatment Clinical Notes Oct, Obesity (BMI 30.0-34 .9) (ICD-10 - E66.9) Oct, Hypercholesterolemia (ICD-10 - E78.00) Oct, Acanthosis nigricans (ICD-10 - L83) Oct, GERD (gastroesophage al reflux disease) (ICD-10 - K21.9) Oct, Depression with anxi ety (ICD-10 - F41.8) Oct, Medication managemen t (ICD-10 - Z79.899) [employer] Other 12-11-2023 Evaluation note* Encounter Date Diagnosis Assessment Notes Treatment Notes Treatment Clinical Notes Sep, Obesity (BMI 30.0-34 .9) (ICD-10 - E66.9) Sep, Hypercholesterolemia (ICD-10 - E78.00) Sep, Acanthosis nigricans (ICD-10 - L83) Sep, GERD (gastroesophage al reflux disease) (ICD-10 - K21.9) Sep, Depression with anxi ety (ICD-10 - F41.8) Sep, Medication managemen t (ICD-10 - Z79.899) [employer] Other 12-11-2023 Evaluation note* Encounter Date Diagnosis Assessment Notes Treatment Notes Treatment Clinical Notes Sep, Obesity, unspecified classification, unspecified obesity type, unspecified whether serious comorbidity present (ICD-10 - E66.9) Sep, BMI 33.0-33.9,adult (ICD-10 - Z68.33) Sep, Other Summary of Visi t: (A) Discussed various items available at the grocery stores (B) Flexibility and forgiveness with nutrition goals (C) Emphasized consistency over continuous change [employer] Other 11-02-2023 Evaluation note* Encounter Date Diagnosis Assessment Notes Treatment Notes Treatment Clinical Notes Aug, Obesity (BMI 35.0-39 .9 without comorbidity) (ICD-10 - E66.9) Aug, Hypercholesterolemia (ICD-10 - E78.00) Aug, Acanthosis nigricans (ICD-10 - L83) Aug, GERD (gastroesophage al reflux disease) (ICD-10 - K21.9) Aug, Depression with anxi ety (ICD-10 - F41.8) Aug, Medication managemen t (ICD-10 - Z79.899) [employer] Other 10-02-2023 Evaluation note* Encounter Date Diagnosis Assessment Notes Treatment Notes Treatment Clinical Notes Jul, Obesity, unspecified classification, unspecified obesity type, unspecified whether serious comorbidity present (ICD-10 - E66.9) Jul, BMI 35.0-35.9,adult (ICD-10 - Z68.35) Jul, Other Summary of Visi t: (A) Plate method (B) Flexibility and forgiveness with nutrition goals (C) Discussed quick and easy meals [employer] Other 09-12-2023 Evaluation note* Encounter Date Diagnosis Assessment Notes Treatment Notes Treatment Clinical Notes Jun, Obesity (BMI 35.0-39 .9 without comorbidity) (ICD-10 - E66.9) Jun, Hypercholesterolemia (ICD-10 - E78.00) Jun, Acanthosis nigricans (ICD-10 - L83) Jun, GERD (gastroesophage al reflux disease) (ICD-10 - K21.9) Jun, Depression with anxi ety (ICD-10 - F41.8) Jun, Medication managemen t (ICD-10 - Z79.899) [employer] Other 08-01-2023 Evaluation note* Encounter Date Diagnosis Assessment Notes Treatment Notes Treatment Clinical Notes May, Obesity (BMI 35.0-39 .9 without comorbidity) (ICD-10 - E66.9) May, Hypercholesterolemia (ICD-10 - E78.00) May, Acanthosis nigricans (ICD-10 - L83) May, GERD (gastroesophage al reflux disease) (ICD-10 - K21.9) May, Depression with anxi ety (ICD-10 - F41.8) May, Medication managemen t (ICD-10 - Z79.899) [employer] Other 06-16-2023 Evaluation note* Encounter Date Diagnosis Assessment Notes Treatment Notes Treatment Clinical Notes Mar, Obesity (BMI 35.0-39 .9 without comorbidity) (ICD-10 - E66.9) Mar, Hypercholesterolemia (ICD-10 - E78.00) Mar, Acanthosis nigricans (ICD-10 - L83) Mar, GERD (gastroesophage al reflux disease) (ICD-10 - K21.9) Mar, Depression with anxi ety (ICD-10 - F41.8) Mar, Medication managemen t (ICD-10 - Z79.899) [employer] Other 04-07-2023 Evaluation note* Encounter Date Diagnosis Assessment Notes Treatment Notes Treatment Clinical Notes Jan, Obesity (BMI 35.0-39 .9 without comorbidity) (ICD-10 - E66.9) Jan, Hypercholesterolemia (ICD-10 - E78.00) Jan, Acanthosis nigricans (ICD-10 - L83) Jan, GERD (gastroesophage al reflux disease) (ICD-10 - K21.9) Jan, Depression with anxi ety (ICD-10 - F41.8) Jan, Medication managemen t (ICD-10 - Z79.899) [employer] Other 02-24-2023 Evaluation note* Encounter Date Diagnosis Assessment Notes Treatment Notes Treatment Clinical Notes Nov, Obesity (BMI 35.0-39 .9 without comorbidity) (ICD-10 - E66.9) Nov, Hypercholesterolemia (ICD-10 - E78.00) Nov, Acanthosis nigricans (ICD-10 - L83) Nov, GERD (gastroesophage al reflux disease) (ICD-10 - K21.9) Nov, Depression with anxi ety (ICD-10 - F41.8) [employer] Other 01-12-2023 Evaluation note* Encounter Date Diagnosis Assessment Notes Treatment Notes Treatment Clinical Notes Oct, Abnormal weight gain (ICD-10 - R63.5) Oct, GERD (gastroesophageal reflux disease) (ICD-10 - K21.9) Oct, Depression with anxiety (ICD-10 - F41.8) Oct, Preventative health care (ICD-10 - Z00.00) Oct, Obesity (BMI 35.0-39.9 without comorbidity) (ICD-10 - E66.9) Oct, Acanthosis nigricans (ICD-10 - L83) [employer] Other 11-28-2022 Evaluation note* Encounter Date Diagnosis Assessment Notes Treatment Notes Treatment Clinical Notes Aug, Other obesity due to excess calories (ICD-10 - E66.09) Patient would like referral to weight loss clinic to explore options that are available. Paperwork sent over Aug, Body mass index [BMI] 35.0-35.9, adult (ICD-10 - Z68.35) Aug, Plantar fasciitis of left foot (ICD-10 - M72.2) Patient will continue to use treatments at home until she sees podiatry [employer] Other 03-21-2022 Evaluation note* Encounter Date Diagnosis Assessment Notes Treatment Notes Treatment Clinical Notes Dec, Acute right-sided low back pain with right-sided sciatica (ICD-10 - M54.41) Take medications as directed. Use caution when operating machinery with muscle relaxer as it may cause drowsiness. Alternating heat and ice to area 3-4 times per day. Rest a lot Follow up with primary care if there is no symptom improvement within the next week, sooner if symptoms worsen or new symptoms occur. Dec, BRYCE (generalized anxiety disorder) (ICD-10 - F41.1) Today during the appointment we discussed depression and emotions. We talked about treatment options that include both counseling and medication interventions. When we first start treatment, it is common to have to be seen more frequently as we figure out the best treatment regimen that fits you as an individual. We will be able to space out appointments more once we find what works for you. If at any time you feel like your symptoms have increased in severity or you want to hurt yourself, please never hesitate to contact us and we will get you in to be seen. Also always know the [facility] Emergency Number is 24 hours a day available, even on holidays there is someone you can reach out to. Also we will check other labs yearly to screen for other health issues. Please remember we are a team and your opinion is very important in all of your healthcare decisions [employer] Other 01-25-2022 Evaluation note* Encounter Date Diagnosis Assessment Notes Treatment Notes Treatment Clinical Notes Oct, Contact with and (suspected) exposure to other viral communicable diseases (ICD-10 - Z20.828) Oct, COVID-19 (ICD-10 - U07.1) Today you tested positive for the COVID virus. This mean you need to follow all CDC quarantine guidelines found at [email or web address] v. It is important to rest, increase fluids, and stay at home. Contact PCP and inform them of results. Medications like Mucinex, Cepacol, Tylenol, saline nasal spray are over the counter medications that can help with the symptoms. Current guidelines include staying home, having no fever above 100.4 for 24 hours without medication and having significant improvement of symptoms before you are allowed to stop your quarantine.. For full guidelines go to CDC. GOV. Contact primary care and ask for guidance is essential to follow up * EDUCATION HANDOUT GIVEN ON OTC TREATMENTS, FOLLOW UP AND WHEN TO SEEK EMERGENCY TREATMENT Oct, BRYCE (generalized anxiety disorder) (ICD-10 - F41.1) Oct, Right acute otitis media (ICD-10 - H66.91) Ear infections are often a secondary infection caused from an URI, the flu or allergies. Take medication as directed. Complete all doses, even if you feel better. Tylenol or ibuprofen can help with pain. Warm pack to area for comfort helps as well. Follow up with primary care provider if no improvement of symptoms. Oct, Influenza B (ICD-10 - J10.1) Take medication as directed. Do not take over the counter cough, cold or flu medications with prescription cough syrup. Antibiotics will not help treat the flu. Symptoms should improvement over next 4-7 days. Follow up with primary care provider if no improvement of symptoms past treatment period. Oct, Other Additional time spent conducting pre-visit phone call, screening for symptoms, instructions on social distancing, application and removal of PPE, and cleaning of examination room, equipment and supplies was preformed. Patient education given for testing methodology and results. Patient care instructions given in writting by CDC Care At Home document. [employer] Other 12-20-2021 Evaluation note* Encounter Date Diagnosis Assessment Notes Treatment Notes Treatment Clinical Notes Sep, Memory loss (ICD-10 - R41.3) Reassurace given at this time that MCE showed no signs of memory concerns today and patient states she does feel like she her memory concerns may be from anxiety. Sep, BRYCE (generalized anxiety disorder) (ICD-10 - F41.1) Today during the appointment we discussed depression and emotions. We talked about treatment options that include both counseling and medication interventions. When we first start treatment, it is common to have to be seen more frequently as we figure out the best treatment regimen that fits you as an individual. We will be able to space out appointments more once we find what works for you. If at any time you feel like your symptoms have increased in severity or you want to hurt yourself, please never hesitate to contact us and we will get you in to be seen. Also always know the [facility] Emergency Number is 24 hours a day available, even on holidays there is someone you can reach out to. Also we will check other labs yearly to screen for other health issues. Please remember we are a team and your opinion is very important in all of your healthcare decisions 40 minutes face to face with patient assessing, education and discussing treatment and importance of commincation with providers if side effects occur. [employer] Other 10-12-2021 Evaluation note* Encounter Date Diagnosis Assessment Notes Treatment Notes Treatment Clinical Notes Jul, Fatigue, unspecified type (ICD-10 - R53.83) Medication may be causing some symptoms Encouraged patient to discuss symptoms with psycholgist during tomorrow so they can talk about changing due to unpleasant side effects. Patient also inquired about medical marijauna, from a medical standpoint if patient I recommend patient discuss with therapist and she can chose to pursue this avenue if she feels it will help her. [employer] Other 09-25-2021 Evaluation note* Encounter Date Diagnosis Assessment Notes Treatment Notes Treatment Clinical Notes Jun, Encounter for screening for other viral diseases (ICD-10 - Z11.59) [employer] Other 09-24-2021 Evaluation note* Encounter Date Diagnosis Assessment Notes Treatment Notes Treatment Clinical Notes Jun, Contact with and (suspected) exposure to other viral communicable diseases (ICD-10 - Z20.828) Jun, Viral upper respiratory illness (ICD-10 - J06.9) Viral upper respiratory infection: adult home care material was printed. Drink plenty of fluids, get plenty of rest. Tylenol Motrin for aches pains or fevers. Follow-up with your family physician if no improvement in 2 to 3 days Jun, Other Additional time spent conducting pre-visit phone call, screening for symptoms, instructions on social distancing, application and removal of PPE, and cleaning of examination room, equipment and supplies was preformed. Patient education given for testing methodology and results. Patient care instructions given in writting by [facility] Care At Home document. [employer] Other Evaluation noteNo InformationNort [employer] Other Evaluation noteNo assessment information available [facility] Work Phone: Hismnvv general Narrative - Reported* Type Description Date Medical History mental disorders Surgical History C section Hospitalization History See Above [employer] Other Hiseaxp general Narrative - Reported* Type Description Date Medical History mental disorders Medical History anxiety Medical History bipolar Medical History schizophrenia Medical History PTSD Surgical History C section x2 Hospitalization History See Above [employer] Other Summary Purpose Family History No Family History Records Found Relationship Condition Age at Onset Recorded Date/T sasha father Diabetes mellitus Unknown Not Specified Diabetes mellitus Unknown Relationship Condition Age at Onset Recorded Date/T sasha father Diabetes mellitus Unknown mother Diabetes mellitus Unknown Advance Directives No Advanced Directives Records Found Advance Directive Response Recorded Date/ Time Advance Directives No May 20, 2021 1:45pm Advance Directive Response Recorded Date/ Time Advance Directives No May 20, 2021 2:45pm Hospital Course Note EMERGENCY DEPARTMENT DISCHAR GE SUMMARY PATIENT NAME:LIZ VENTURA MRN: [id number] AGE: 50 Years SEX: Female PHONE:[phone] DOS: 07/25/2020 09:59:00 : 1970 ER PHYSICIAN:Isaac Mckeon DO, V PCP: Physician, No PCP CHIEF COMPLAINT: Cough Allergies No Known Medication Allergies Problems Active Anxiety attack Migraines DISCHARGE DIAGNOSIS: Cough DISCHARGE INSTRUCTIONS: Work Release ([place]- LC) (Custom); [place] COVID19 How to Protect Yourself (Custom); [place] List All (CUSTOM); Cough, Adult HISTORY OF PRESENT ILLNESS: MEDICAL DECISION MAKING: PROCEDURES: DISPOSITION: Time of Departure From ER 07/25/2020 12:30 Discharge/Transfer From ER Home 01 MEDICATION LISTS: CURRENT MEDICATION LIST benzonatate (Tessalon 200 mg oral capsule) 1 Capsule By Mouth 3 Times a day as needed as needed for cough. Refills: 0. MEDICATIONS GIVEN DURING MEDICAL VISIT None LAB RESULTS: RADIOLOGY: RADIOLOGY RESULT(S) (Please contact Medical Records office for further information): (more content not included)... Reason for Referral Reason patient has chr onic problems with feet. Diagnosis 1 Plantar fasciitis of left foot (M72.2) Referral Organization [facility] Referring Provider First Name Anna Referring Provider Last Name Olimpia Referring Provider Specialty Nurse Pract itioner Referred Organization [facility] Referred Provider Simona Smith Referred Address ,[place], [place],[address] Referred Provider Specialty Podiatry - S urgical Chiropody Referral Priority Routine General Notes Roxana Hall M 022 12:41:05 PM >Received today and waiting for office notes to be locked Chief Complaint and Reason for Visit Chief Complaint Obesity L83;E78.00;Z79.899 Reason for Visit Acanthosis nigricans GERD (gastroesophageal reflux disease) Hypercholesterolemia Obesity (BMI 30.0-34.9) Chief Complaint Admit Date BH December 01, 2024 12:0 0pm Schizo Affective Disorder December 01 2:26pm Schizo Affective Disorder December 02 7:05am Reason for Visit Admit Date Schizophrenia December 01, 2024 2:26 pm Suicidal ideation December 01, 2024 2:26 pm Additional Source Comments INFORMATION SOURCE (unrecogn ized section and content) DATE CREATED AUTHOR 09/16/2020 [facility] DATE CREATED AUTHOR AUTHOR'S ORGANIZ ATION 07/09/2021 [facility] DATE CREATED AUTHOR AUTHOR'S ORGANIZ ATION 01/12/2025 [facility] REASON FOR VISIT (unrecogniz ed section and content) #30 RED MARTINEZ ESCAPE, EXPOSED , HEADACHE DIARRHEA, SORE THROATNo Information1 month Follow upMEMORY PROBLEMSNo Information1 MONTH F/U, Vamshi Anxiety, COVID Provider VisitNo InformationFOLLOW UP BRYCE, Vamshi AnxietyWEIGHT MANAGEMENTInitial WMNDC Labs6 Week F/UWMN F/Nick InformationDLC rescheduleWMNWMN F/Nick InformationWMNNo InformationRD WM f/uWMN f/u Care Teams (unrecognized sec tion and content) Team Status: Active Member Role Status Dates FRANCISCO Dahl Primary Care Provider Active Team Status: Inactive Member Role Status Dates FRANCISCO Dalh Primary Care Provider Active Start: January 05, 2024 End: January 05, 2024 Cory Sage MD Attending Provider Active Start: January 05, 2024 End: January 05, 2024 Team Status: Active Member Role Status Dates FRANCISCO Dahl Primary Care Provider, Atten ding Provider Active Team Status: Inactive Member Role Status Dates FRANCISCO Dahl Primary Care Provider Active Cory Sage MD Attending Provider Active Team Status: Active Member Role Status Dates PHYSICIAN NO FAMILY Primary Care Provider Active Team Status: Active Member Role Status Dates FRANCISCO Dahl Primary Care Provider Active Start: December 01, 2024 Boogie Camilo MD Attending Provider Active Start: December 01, 2024 Team Status: Inactive Member Role Status Dates PHYSICIAN NO FAMILY Primary Care Provider Active Start: December 01, 2024 End: December 04, 2024 Boogie Camilo MD Admit Provide r, Attending Provider Active Start: December 01, 2024 End: December 04, 2024 Team Status: Active Member Role Status Dates PHYSICIAN NO FAMILY Primary Care Provider Active Start: December 02, 2024 Boogie Camilo MD Admit Provide r, Attending Provider, Other Provider Active Start: December 02, 2024 Goals (unrecognized section and content) Goals may be documented in a n alternate section FOR RECORDS PERTAINING TO PATIENTS WHO ARE OR HAVE BEEN ENROLLED IN A CHEMICAL DEPENDENCY/SUBSTANCEABUSE PROGRAM, SOME INFORMATION MAY BE OMITTED. This clinical summary was aggregated from multiple sources. Caution should be exercised in using it in the provision of clinical care. This summary normalizes information from multiple sources, and as a consequence, information in this document may materially change the coding, format and clinical context of patient data. In addition, data may be omitted in some cases. CLINICAL DECISIONS SHOULD BE BASED ON THE PRIMARY CLINICAL RECORDS. [facility] [employer] [facility]. provides no warranty or guarantee of the accuracy or completeness of information in this document.
[2025-02-17 00:29] VITALS: BP 133/78; PULSE 83; TEMP 36.4; O2SAT 96; BMI 26.6
--- NOTE | 2025-02-17 00:49 | ED_ITS ---
HPI - Psych General Chief Complaint: Psychiatric Symptoms Stated Complaint: ALTERED MENTAL STATUS Time Seen by Provider: 02/17/25 00:40 Source: Reports patient Mode of arrival: walk-in History of Present Illness HPI Narrative: patient has past history of depression and schizophrenia. States she required inpatient treatment in December. Was prescribed medication after release and follow up plan but she never did follow up and is currently not taking any medication. She describes ongoing depression and auditory hallucinations. States she overdosed on cocaine Tuesday( it is now tuesday early AM). States she over dosed on cocaine and # 6 cymbalta pills. States she doesn't feel safe where she is now. She denies suicidal thoughts at this time. States where she was at her partner does not understand and she is having some difficulty trying to decide what she is hearing because of her auditory hallucinations Related Data Home Medications ?Medication ?Instructions ?Recorded ?Confirmed metformin 500 mg tablet,extended 500 mg PO DAILY 12/0112/01/24 release 24 hr phentermine 37.5 mg tablet 37.5 mg PO DAILY 12/01/24 0 12/01/24 rosuvastatin 10 mg tablet 10 mg PO DAILY 12/01/2410/27 Allergies Allergy/AdvReac Type Severity Reaction Status Date / Time No Known Drug Allergies Allergy Verified 12/01/24 01:30 Review of Systems ROS Status of ROS 10 or more systems reviewed and unremark able except as noted in history and below PFSH PFSH Social History Little interest or pleasure in doing things: nearly every day Feeling down, depressed, or hopeless: nearly every day Exam Constitutional Vital Signs, click to edit/add: Last Vital Signs Temp 97.6 F 02/17/25 00:29 Pulse 83 02/17/25 00:29 Resp 20 02/17/25 00:29 BP 133/78 02/17/25 00:29 Pulse Ox 96 02/17/25 00:29 O2 Del Method Room Air 02/17/25 00:29 Common normals: no apparent distress, average body habitus, oriented x3, no limitations, healthy appearing, alert and well nourished [facility] Common normals: normocephalic and head/scalp atraumatic Eye Common normals: PERRL, EOMs intact bilaterally and conjunctivae normal Respiratory Common normals: normal respiratory effort, no retractions, no use of accessory muscles and clear to auscultation bilaterally Cardio Common normals: regular rate, regular rhythm, S1 normal heart sound and S2 no rmal heart sound GI Common normals: Normal to inspection, nondistended, normoactive bowel sounds present, soft to palpation and non-tender Extremity Common normals: normal to inspection and full ROM Neuro Common normals: oriented x3, CN's II-XII intact bilaterally, moves all extremities and no focal motor deficits Psych Appearance: grossly normal Course Vital Signs Vital signs: Vital Signs Temperature 97.6 F 02/17/25 00:29 Pulse Rate 83 02/17/25 00:29 Respiratory Rate 20 02/17/25 00:29 Blood Pressure 133/78 02/17/25 00:29 Pulse Oximetry 96 02/17/25 00:29 Oxygen Delivery Method Room Air 02/17/25 00:29 Temperature 97.6 F 02/17/25 00:29 Pulse Rate 83 02/17/25 00:29 Respiratory Rate 20 02/17/25 00:29 Blood Pressure 133/78 02/17/25 00:29 Pulse Oximetry 96 02/17/25 00:29 Oxygen Delivery Method Room Air 02/17/25 00:29 MDM - Psych MDM Narrative Medical decision making narrative: past history of schizophrenia and depression. overdose on # 6 cymbalta pills and cocaine 1.5 days ago. Came in tonight stating she did not feel safe where she was at. She has auditory hallucinations. Not taking her mental health medications. labs ordered including drug screen. Will need mental health eval Lab Data Labs: Lab Results 02/17/25 Range/Units 01:18 WBC 10.9 (4.0-11.0) 10^3/uL RBC 4.63 (4.20-5.40) 10^6/uL Hgb 13.1 (12.0-16.0) g/dL Hct 40.2 (36.0-48.0) % MCV 86.8 (81.0-99.0) fL MCH 28.3 (26.7-34.0) pg MCHC 32.6 (29.9-35.2) g/dL RDW 12.9 (11.0-15.0) % Plt Count 373 (150-450) 10^3/uL MPV 9.5 (9.5-13.5) fL Neut % (Auto) 77.3 H (43.0-75.0) % Lymph % (Auto) 12.8 L (20.5-60.0) % [place] % (Auto) 7.1 (1.7-12.0) % Eos % (Auto) 2.1 (0.9-7.0) % Baso % (Auto) 0.4 (0.2-2.0) % Neut # (Auto) 8.5 H (1.4-6.5) 10^3/uL Lymph # (Auto) 1.4 (1.2-3.8) 10^3/uL Monona # (Auto) 0.8 (0.3-0.8) 10^3/uL Eos # (Auto) 0.2 (0.0-0.7) 10^3/uL Baso # (Auto) 0.0 (0.0-0.1) 10^3/uL Abs Immat Gran (auto) 0.03 (0.00-0.03) 10^3/uL Imm/Tot Granulo (auto) 0.3 (0.0-0.5) % Sodium 137 (136-145) mmol/L Potassium 3.8 (3.5-5.1) mmol/L Chloride 102 (98-107) mmol/L Carbon Dioxide 26.8 (21.0-32.0) mmol/L Anion Gap 12.0 BUN 24.0 H (7.0-18.0) mg/dL Creatinine 0.81 (0.55-1.02) mg/dL Est GFR ( Amer) >60 (>=60 mL/min/1.73m^2) Est GFR (Non-Af Amer) >60 (>=60 mL/min/1.73m^2) BUN/Creatinine Ratio 29.6 Glucose 116 H (74-106) mg/dL Lactate 0.8 (0.4-2.0) mmol/L Calcium 9.3 (8.5-10.1) mg/dL Total Bilirubin 0.5 (0.2-1.0) mg/dL AST 14 L (15-37) U/L ALT 13 L (14-59) U/L Alkaline Phosphatase 73 (46-116) U/L Total Protein 7.2 (6.4-8.2) g/dL Albumin 3.6 (3.4-5.0) g/dL Globulin 3.6 g/dL Albumin/Globulin Ratio 1.0 Salicylates <2.8 (<=19.9) mg/dL Acetaminophen <2.0 L (10.0-30.0) ug/mL Ethanol Quant <3 mg/dL Discharge Plan Discharge Patient Disposition: Still a Patient
--- NOTE | 2025-02-17 00:54 | ECG_ITS ---
[facility] Test Date: 2025-02-17 Pat Name: AURELIA VENTURA Department: Room: - Gender: Female Long Term Care Administrator: : 1970 Requested By: [id number] Order Number: [id number] Reading MD: SERG COOLEY M.D. Measurements Intervals [place] Rate: 78 P: 50 MA: 146 QRS: 39 QRSD: 88 T: 56 QT: 386 QTc: 419 Interpretive Statements 1100 Sinus rhythm 9110 normal ECG Compared to ECG 12/01/2024 01:50:14 No significant changes Electronically Signed On 02-17-2025 6:41:20 EDT by SERG COOLEY M.D.
[2025-02-17 01:27] LABS: Basophils Percent Auto 0.4 % (0.2-2.0); Eosinophils Absolute Auto 0.2 10^3/uL (0.0-0.7); Eosinophils Percent Auto 2.1 % (0.9-7.0); Hematocrit 40.2 % (36.0-48.0); Hemoglobin 13.1 g/dL (12.0-16.0); Immature Granulocytes Abs Auto 0.03 10^3/uL (0.00-0.03); Immature Granulocytes Pct Auto 0.3 % (0.0-0.5); Lymphocytes Absolute Auto 1.4 10^3/uL (1.2-3.8); Lymphocytes Percent Auto 12.8 % (20.5-60.0); Mean Corpuscular HGB Conc 32.6 g/dL (29.9-35.2); Mean Corpuscular Hemoglobin 28.3 pg (26.7-34.0); Mean Corpuscular Volume 86.8 fL (81.0-99.0); Mean Platelet Volume 9.5 fL (9.5-13.5); Monocytes Absolute Auto 0.8 10^3/uL (0.3-0.8); Monocytes Percent Auto 7.1 % (1.7-12.0); Neutrophils Absolute Auto 8.5 10^3/uL (1.4-6.5); Neutrophils Percent Auto 77.3 % (43.0-75.0); Platelet Count 373 10^3/uL (150-450); Red Blood Count 4.63 10^6/uL (4.20-5.40); Red Cell Distribution Width 12.9 % (11.0-15.0); White Blood Count 10.9 10^3/uL (4.0-11.0)
[2025-02-17 01:42] LABS: Alanine Aminotransferase 13 U/L (14-59); Albumin Level 3.6 g/dL (3.4-5.0); Alkaline Phosphatase 73 U/L (46-116); Aspartate Amino Transferase 14 U/L (15-37); BUN Creatinine Ratio 29.6; Bilirubin Total 0.5 mg/dL (0.2-1.0); Calcium 9.3 mg/dL (8.5-10.1); Carbon Dioxide 26.8 mmol/L (21.0-32.0); Chloride 102 mmol/L (98-107); Estimated GFR (African America >60 (>=60 mL/min/1.73m^2); Estimated GFR (Non-African Ame >60 (>=60 mL/min/1.73m^2); Ethanol <3 mg/dL; Globulin 3.6 g/dL; Glucose 116 mg/dL (74-106); Potassium 3.8 mmol/L (3.5-5.1); Salicylate <2.8 mg/dL (<=19.9); Sodium 137 mmol/L (136-145); Total Protein 7.2 g/dL (6.4-8.2)
[2025-02-17 01:44] LABS: Lactate/Lactic Acid 0.8 mmol/L (0.4-2.0)
[2025-02-17 01:49] LABS: Acetaminophen <2.0 ug/mL (10.0-30.0)
[2025-02-17 08:22] LABS: Bilirubin Urine SMALL (NEGATIVE); Blood Urine NEGATIVE (NEGATIVE); Clarity Urine CLEAR (CLEAR); Glucose Urine UA NEGATIVE (NEGATIVE); Ketones Urine NEGATIVE (NEGATIVE); Leukocyte Esterase Urine NEGATIVE (NEGATIVE); Nitrite Urine NEGATIVE (NEGATIVE); Protein Urine TRACE mg/dL (NEG/TRACE); Specific Gravity Urine >=1.030 (1.005-1.025)
[2025-02-17 08:24] LABS: Color Urine GREEN (YELLOW)
[2025-02-17 08:29] LABS: Bacteria Urine MODERATE #/HPF (NONE SEEN); Mucus Urine LARGE (NONE SEEN); RBC Urine 0-2 #/HPF (0-2); WBC Urine 0-2 #/HPF (NONE SEEN)
[2025-02-17 08:30] LABS: Cast Seen? SEEN #/LPF (NONE SEEN); Crystals Seen? None Seen #/HPF (None Seen); Hyaline Casts Urine FEW; Squamous Epithelial Cell Urine MODERATE #/LPF (NONE/RARE); Urine Culture Indicated YES-FRMC
[2025-02-17 08:34] LABS: Cannabinoid Screen Urine NEGATIVE (NEGATIVE)
[2025-02-17 08:35] LABS: Amphetamine Screen Urine NEGATIVE (NEGATIVE); Barbiturates Screen Urine NEGATIVE (NEGATIVE); Benzodiazepines Screen Urine NEGATIVE (NEGATIVE); Buprenorphine Screen Urine NEGATIVE (NEGATIVE); Cocaine Screen Urine POSITIVE (NEGATIVE); Methadone Screen Urine NEGATIVE (NEGATIVE); Methamphetamines Screen Urine NEGATIVE (NEGATIVE); Opiate Screen Urine NEGATIVE (NEGATIVE); Oxycodone Screen Urine NEGATIVE (NEGATIVE); Phencyclidine Screen Urine NEGATIVE (NEGATIVE); Tricyclic Antidepressant Urine NEGATIVE (NEGATIVE)
[2025-02-17 08:39] LABS: INR 1.03; Partial Thromboplastin Time 31.6 sec (22.3-36.2); Prothrombin Time 10.9 sec (9.0-11.6)
[2025-02-17 10:21] VITALS: BP 118/55; PULSE 81; O2SAT 92
== END 2025-02-17 10:41 ==
PROVIDERS: Emergency Medicine; Emergency Provider Internal Medicine
DX: F20.9 Schizophrenia, unspecified (principal); F32.A Depression, unspecified; F14.90 Cocaine use, unspecified, uncomplicated; Z91.148 Patient's other noncompliance with medication regimen for other reason
CPT/HCPCS: 36415; 80053; 80179; 80307; 80320; 80329; 81001; 83605; 85025; 85610; 85730; 87086; 93005; 99285